=== PATIENT | male | born 1965 ===

== ENCOUNTER 2016-11-02 16:54 | Observation (INO) | payer OTHER ==
[2016-11-02] MEDS ORDERED: TDAP Vaccine 0.5 mL Syr IM ONE (17:09)
--- NOTE | 2016-11-02 17:57 | ED PDOC ---
Arrival/HPI - General Time Seen by Provider: 11/02/16 16:55 Historian: Patient - History of Present Illness Narrative History of Present Illness (Text): 11/02/16 17:57 A 51 year old male, whose past medical history includes hypertension and alcohol abuse, was brought into the emergency department by EMS for alcohol intoxication. History obtained through scribe who translated for patient. Patient is unable to recall any details prior to arrival but admits to etoh use. Patient denies any fever, chills, nausea, vomiting, diarrhea, abdominal pain, urinary symptoms, neck pain, back pain, chest pain, shortness of breath, headache, dizziness, suicidal ideation, homicidal ideation or any other complaints. Patient is a poor historian. PMD: Dr. Elisha Rojo Time/Duration: Prior to Arrival Symptom Course: Unchanged Quality: Other Context: Other Past Medical History - Provider Review Nursing Documentation Reviewed: Yes - Infectious Disease Hx of Infectious Diseases: None - Tetanus Immunization Tetanus Immunization: Unknown - Cardiac Hx Cardiac Disorders: Yes Hx Hypertension: Yes - Pulmonary Hx Respiratory Disorders: Yes Hx Sleep Apnea: Yes - Neurological Hx Neurological Disorder: No - HEENT Hx HEENT Disorder: No - Renal Hx Renal Disorder: Yes Hx Kidney Stones: Yes - Endocrine/Metabolic Hx Endocrine Disorders: No - Hematological/Oncological Hx Blood Disorders: No - Integumentary Hx Dermatological Disorder: No - Musculoskeletal/Rheumatological Hx Musculoskeletal Disorders: Yes Hx Falls: Yes - Gastrointestinal Hx Gastrointestinal Disorders: Yes Hx Gastritis: Yes - Genitourinary/Gynecological Hx Genitourinary Disorders: No Hx Sexually Transmitted Diseases: No - Psychiatric Hx Psychophysiologic Disorder: Yes Hx Anxiety: Yes Hx Depression: Yes Hx Substance Use: No - Past Surgical History Past Surgical History: Non-Contributing - Anesthesia Hx Anesthesia: Yes Hx Anesthesia Reactions: No Hx Malignant Hyperthermia: No - Suicidal Assessment Feels Threatened In Home Enviroment: No Family/Social History - Physician Review Nursing Documentation Reviewed: Yes Family/Social History: No Known Family HX Smoking Status: Never Smoked Hx Alcohol Use: Yes Amount per day: 15 Hx Substance Use: No Hx Substance Use Treatment: Yes Allergies/Home Meds Allergies/Adverse Reactions: Allergies No Known Allergies Allergy (Verified 10/17/16 20:10) Home Medications: Home Meds Medication Instructions Recorded Confirmed Losartan Potassium [Cozaar] 100 mg PO DAILY 02/13/17 04/16/17 Metoprolol Succinate [Toprol XL] 100 mg PO DAILY 08/16/16 10/17/16 Review of Systems - Review of Systems Systems not reviewed;Unavailable: Intoxicated Physical Exam Vital Signs Reviewed: Yes Vital Signs Temp Pulse Resp BP Pulse Ox 11/02/16 20:02 94 H 16 120/76 99 11/02/16 17:00 97.7 F 105 H 18 113/73 96 Temperature: Afebrile Blood Pressure: Normal Pulse: Tachycardic Respiratory Rate: Normal Appearance: Positive for: Comfortable, Other (Intoxicated male, who is somnolent ) Pain Distress: None Mental Status: No: Agitated - Systems Exam Head: Present: Atraumatic, Normocephalic Pupils: Present: PERRL Conjunctiva: Present: Normal Mouth: Present: Moist Mucous Membranes Pharnyx: Present: Normal. No: ERYTHEMA, EXUDATE Nose (Internal): Present: Other (Dry blood noted in right nare) Neck: Present: Normal Range of Motion Respiratory/Chest: Present: Clear to Auscultation, Good Air Exchange. No: Respiratory Distress, Accessory Muscle Use Cardiovascular: Present: Regular Rate and Rhythm, Normal S1, S2. No: Murmurs Abdomen: Present: Normal Bowel Sounds. No: Tenderness, Distention, Peritoneal Signs Upper Extremity: Present: Normal Inspection. No: Cyanosis, Edema Lower Extremity: Present: NORMAL PULSES, Normal ROM, Neurovascularly Intact, Other (Skin abrasions to bilateral knees, no swelling). No: Edema, CALF TENDERNESS, Swelling, Erythema, Deformity, Temperature Abnormalties Skin: Present: Warm, Dry, Normal Color. No: Rashes Psychiatric: Present: Intoxicated. No: Suicidal Ideation, Homicidal Ideation Medical Decision Making ED Course and Treatment: 11/02/16 17:56 Impression: A 51 year old male brought in for alcohol intoxication. Patient unable to recall details, denies any complaints at this time. Differential Diagnosis included but are not limited to: Alcohol intoxication Plan: -- Head CT -- Maxillofacial CT -- Bilateral knee with patella xray -- Boostrix vaccine -- Reassess and disposition Prior Visits: Notes and results from previous visits were reviewed. Patient last seen in the ED on 08/16/16 for alcohol intoxication. Progress Notes: Report Date : 11/02/2016 18:31:09 PROCEDURE: CT HEAD WITHOUT CONTRAST. Dictator : Nanci Hua MD IMPRESSION: Atrophy. Prominence of the size anterior convexity subarachnoid spaces, possibly bilateral hygromas. Mild nonspecific white matter changes. Small fluid in the right mastoid air cells. Correlate clinically for mastoiditis. Report Date : 11/02/2016 18:41:09 Procedure: CT maxillofacial Dictator : Nanci Hua MD Impression: No acute fracture identified. Partial opacification of the right mastoid air cells; correlate clinically for possibility of mastoiditis. 11/02/16 18:05 Bilateral knee xray read and interpreted by me, which shows no acute fracture. 11/02/16 22:30 Patient with etoh intoxication but no other complaints. Patient is still intoxicated and not steady for discharge; daughter came to the ED to check on the patient and says she will not take him home till he maldonado up because she says if he leaves him, he will just leave the house and go drink. So she said she will return upon sobriety. 11/02/16 22:32 Case will be endorsed to Dr. Mcgee, awaiting patient sobriety. - RAD Interpretation Radiology Orders: 11/02/16 17:08 Brain [HEAD W/O CONTRAST] [CT] Stat MAXILLOFACIAL W/O CONTRAST [CT] Stat KNEE W PATELLA BILAT 3 VIEW [RAD] Stat - Medication Orders Current Medication Orders: Discontinued Medications Tetanus/Reduced Diphtheria/Acell Pertussis (Boostrix Vaccine Inj) 0.5 ml IM .ONCE ONE Stop: 11/02/16 17:10 Last Admin: 11/02/16 17:51 Dose: 0.5 ml - Scribe Statement The provider has reviewed the documentation as recorded by the Scribe Salima Hernandez Provider Scribe Attestation: All medical record entries made by the Scribe were at my direction and personally dictated by me. I have reviewed the chart and agree that the record accurately reflects my personal performance of the history, physical exam, medical decision making, and the department course for this patient. I have also personally directed, reviewed, and agree with the discharge instructions and disposition. Disposition/Present on Arrival - Present on Arrival Any Indicators Present on Arrival: No History of DVT/PE: No History of Uncontrolled Diabetes: No Urinary Catheter: No History of Decub. Ulcer: No History Surgical Site Infection Following: None - Disposition Have Diagnosis and Disposition been Completed?: No Diagnosis: Alcohol intoxication Disposition Time: 23:00 Patient Problems: Current Active Problems Problem Status Onset Alcohol intoxication Acute Condition: STABLE Referrals: Elisha Rojo MD [Primary Care Provider] - Follow up with primary
--- NOTE | 2016-11-02 18:32 | CT ---
PROCEDURE: CT HEAD WITHOUT CONTRAST. HISTORY: etoh; fell and hit head COMPARISON: Noncontrast head CT performed 04/01/15 TECHNIQUE: Axial computed tomography images were obtained through the head/brain without intravenous contrast. Radiation dose: Total exam DLP = 822.62 mGy-cm. This CT exam was performed using one or more of the following dose reduction techniques: Automated exposure control, adjustment of the mA and/or kV according to patient size, and/or use of iterative reconstruction technique. FINDINGS: Examination limited by oblique positioning of patient's head in the gantry. HEMORRHAGE: No intracranial hemorrhage. BRAIN: Diffuse atrophy with prominence of the ventricles and sulci noted. No mass effect or edema. Prominence of the size anterior convexity subarachnoid spaces, possibly bilateral hygromas. Mild scattered white matter hypodensities, which are nonspecific, but often seen with chronic microvascular ischemic disease. Please note that MRI with diffusion imaging is more sensitive in the detection of acute ischemic event. VENTRICLES: No hydrocephalus. CALVARIUM: Unremarkable. PARANASAL SINUSES: Unremarkable as visualized. No significant inflammatory changes. MASTOID AIR CELLS: Small fluid in the right mastoid air cells. The left mastoid air cells appear clear. OTHER FINDINGS: None. IMPRESSION: Atrophy. Prominence of the size anterior convexity subarachnoid spaces, possibly bilateral hygromas. Mild nonspecific white matter changes. Small fluid in the right mastoid air cells. Correlate clinically for mastoiditis.
--- NOTE | 2016-11-02 18:43 | CT ---
CT maxillofacial bones without IV contrast Indication: etoh; fell and hit face Comparison: Noncontrast head CT performed the same day. Technique: Axial computed tomography images were obtained of the maxillofacial bones without the use of intravenous contrast. Coronal and sagittal reformatted images were generated and reviewed. This CT exam was performed using 1 or more of the falling dose reduction techniques: Automated exposure control, adjustment of the MAA and/or kV according to patient size, and/or use of iterative reconstruction technique. Radiation dose: Total exam DLP = 768.71 mGy-cm. Findings: The facial bones appear intact without acute fracture. Poor dentition. The orbits appear unremarkable. The temporomandibular joints are located. Partial opacification the right mastoid air cells. The left mastoid air cells appear clear. The paranasal sinuses appear clear without air-fluid levels. Impression: No acute fracture identified. Partial opacification of the right mastoid air cells; correlate clinically for possibility of mastoiditis.
[2016-11-03 07:39] LABS: ADD MANUAL DIFF? NO
--- NOTE | 2016-11-03 07:48 | ED PDOC ---
Physical Exam Vital Signs Reviewed: Yes Vital Signs Temp Pulse Resp BP Pulse Ox 11/03/16 12:32 101 H 16 134/98 H 99 11/03/16 09:04 99 H 16 135/82 99 11/03/16 07:40 94 H 16 134/82 99 11/03/16 07:20 98.2 F 98 H 20 138/82 98 11/03/16 07:11 94 H 16 96 11/03/16 05:50 94 H 16 132/78 97 11/03/16 03:00 92 H 16 126/78 94 L 11/02/16 23:09 84 16 114/80 97 11/02/16 20:02 94 H 16 120/76 99 11/02/16 17:00 97.7 F 105 H 18 113/73 96 Temperature: Afebrile Blood Pressure: Normal Pulse: Tachycardic Respiratory Rate: Normal Appearance: Positive for: Non-Toxic Pain Distress: None Mental Status: Positive for: Alert and Oriented X 3 Finger Stick Blood Glucose: 105 Medical Decision Making ED Course and Treatment: 11/03/16 07:44 Case endorsed to me by , pending sobriety and reevaluation. Patient is a 51 year old male who was brought to emergency department for alcohol intoxication. On reevaluation, patient is awake, alert, and oriented X3. Admits to drinking alcohol for past week. Denies any headache, or chest pain /discomfort. On PE, patient is tremulous and very shaky. Ordered labs and Librium. Patient will be admitted for alcohol withdrawal. Persistent shakiness despite librium. He admits to drinking alcohol for "past week". Denies chest pain or shortness of breath. No focal motor weakness or sensory deficits. - Lab Interpretations Lab Results: 11/03/16 07:30 11/03/16 08:45 Lab Results 11/03/16 08:50: Magnesium 1.5 L 11/03/16 08:45: Sodium 134, Potassium 3.7, Chloride 98, Carbon Dioxide 20 L, Anion Gap 20, BUN 15, Creatinine 1.4, Est GFR ( Amer) > 60, Est GFR (Non- Af Amer) 53, Random Glucose 94, Calcium 9.2, Total Bilirubin 1.1, AST 65 H, ALT 50, Alkaline Phosphatase 110, Total Protein 8.6 H, Albumin 4.4, Globulin 4.2, Albumin/Globulin Ratio 1.0 L 11/03/16 07:30: Alcohol, Quantitative 127 H 11/03/16 07:30: WBC 11.5 H, RBC 4.51, Hgb 14.8, Hct 40.1 L, MCV 88.9, MCH 32.8, MCHC 36.9, RDW 15.4 H, Plt Count 240, MPV 10.6, Gran % 75.4 H, Lymph % (Auto) 15.6 L, [place] % (Auto) 8.7 H, Eos % (Auto) 0.1 L, Baso % (Auto) 0.2, Gran # 8.63 H, Lymph # 1.8, [place] # 1.0 H, Eos # 0.0, Baso # 0.02 11/02/16 17:28: POC Glucose (mg/dL) 92 - RAD Interpretation Radiology Orders: 11/02/16 17:08 Brain [HEAD W/O CONTRAST] [CT] Stat MAXILLOFACIAL W/O CONTRAST [CT] Stat KNEE W PATELLA BILAT 3 VIEW [RAD] Stat - Medication Orders Current Medication Orders: Atorvastatin Calcium (Lipitor) 20 mg PO HS RICHARD Chlordiazepoxide (Librium) 25 mg PO Q8 RICHARD PRN Reason: Protocol Multivitamins/Vitamin C 10 ml/Thiamine HCl 100 mg/ Folic Acid 1 mg/ Sodium Chloride 1,011.2 mls @ 100 mls/hr IV .Q10H7M ONE Stop: 11/03/16 20:20 Last Admin: 11/03/16 11:00 Dose: 100 mls/hr Lorazepam (Ativan) 2 mg IVP Q2H PRN; Protocol PRN Reason: Anxiety Losartan Potassium (Cozaar) 100 mg PO DAILY RICHARD Metoprolol Succinate (Toprol Xl) 100 mg PO DAILY RICHARD Multivitamins (Thera Tab) 1 tab PO DAILY RICHARD Ondansetron HCl (Zofran Inj) 4 mg IVP Q4H PRN PRN Reason: Nausea/Vomiting Pantoprazole Sodium (Protonix Ec Tab) 40 mg PO 0630 RICHARD Sertraline HCl (Zoloft) 50 mg PO DAILY RICHARD Discontinued Medications Acetaminophen (Tylenol 325mg Tab) 650 mg PO ONCE STA Stop: 11/03/16 10:21 Last Admin: 11/03/16 11:00 Dose: 650 mg Chlordiazepoxide (Librium) 50 mg PO STAT STA PRN Reason: Protocol Stop: 11/03/16 07:36 Last Admin: 11/03/16 07:46 Dose: 50 mg Lorazepam (Ativan) 1 mg IVP ONCE ONE Stop: 11/03/16 10:15 Last Admin: 11/03/16 11:00 Dose: 1 mg Tetanus/Reduced Diphtheria/Acell Pertussis (Boostrix Vaccine Inj) 0.5 ml IM .ONCE ONE Stop: 11/02/16 17:10 Last Admin: 11/02/16 17:51 Dose: 0.5 ml Disposition/Present on Arrival - Present on Arrival Any Indicators Present on Arrival: No History of DVT/PE: No History of Uncontrolled Diabetes: No Urinary Catheter: No History of Decub. Ulcer: No History Surgical Site Infection Following: None - Disposition Have Diagnosis and Disposition been Completed?: Yes Diagnosis: Alcohol intoxication, Alcohol withdrawal syndrome Disposition: HOSPITALIZED Disposition Time: 10:30 Patient Plan: Admission Patient Problems: Current Active Problems Problem Status Onset Alcohol intoxication Acute Alcohol withdrawal syndrome Acute Condition: FAIR
[2016-11-03 07:49] LABS: BASO # 0.02 K/mm3 (0.0-2.0); BASO % 0.2 % (0.0-3.0); EOS % 0.1 % (1.5-5.0); GRAN # 8.63 (1.4-6.5); GRAN % 75.4 % (50.0-68.0); HEMATOCRIT 40.1 % (42.0-52.0); LYMPH # 1.8 (1.2-3.4); LYMPH % 15.6 % (22.0-35.0); MEAN CELL VOLUME 88.9 fL (80.0-105.0); MEAN CORPUSCULAR HEMOGLOBIN 32.8 pg (25.0-35.0); MEAN CORPUSCULAR HGB CONC 36.9 g/dl (31.0-37.0); MEAN PLATELET VOLUME 10.6 fl (7.0-11.0); MONO % 8.7 % (1.0-6.0); PLATELET COUNT 240 10^3/uL (120.0-450.0); RED CELL DISTRIBUTION WIDTH 15.4 % (11.5-14.5); WHITE BLOOD COUNT 11.5 10^3/ul (4.5-11.0)
--- NOTE | 2016-11-03 08:06 | RAD ---
PROCEDURE: Bilateral Knee Radiographs. HISTORY: fell and hit knees b/L COMPARISON: None. 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 No fracture suspect JOINTS: Bilateral medial femoral tibial joint space narrowing. On these exams mild bilateral varus orientation is suggested. SOFT TISSUES: Right Knee: Normal. Left Knee: Normal. JOINT EFFUSION: Right Knee: None. Left Knee: None. OTHER FINDINGS: None. IMPRESSION: No fracture. Bilateral bipartite patella -developmental variant s
[2016-11-03 09:04] LABS: ALKALINE PHOSPHATASE 110 U/L (38-133); ALT/SGPT 50 U/L (7-56); AST/SGOT 65 U/L (15-59); BILIRUBIN,TOTAL 1.1 mg/dL (0.2-1.3); BLOOD UREA NITROGEN 15 mg/dL (7-21); CALCIUM 9.2 mg/dL (8.4-10.5); CARBON DIOXIDE 20 mmol/L (21-33); CHLORIDE 98 mmol/L (95-110); GFR AFRICAN-AMERICAN > 60; GLUCOSE,RANDOM 94 mg/dL (70-110); POTASSIUM 3.7 mmol/L (3.6-5.0); SODIUM 134 mmol/L (132-148); TOTAL PROTEIN 8.6 g/dL (5.8-8.3)
[2016-11-03] MEDS ORDERED: Multivitamin (MVI) 10 ML, Thiamine 100 MG, Folic Acid 1 MG in Sodium Chloride 0.9% 1,00... IV ONE (10:14)
--- NOTE | 2016-11-03 13:14 | CP.PCM.HP ---
<WenceslaoWm - Last Filed: 11/03/16 13:37> History of Present Illness - History of Present Illness History of Present Illness: 51 M with pmh of depression, anxiety, HTN and ETOH abuse presents with passing out following drinking alcohol. Pt states that he was home have a few bottles of beer and whiskey when he passed out. He states that he normally drinks 6-8 packs of beer and some whisky daily. He first began drinking alcohol aprox 10 years ago. Than his son at a young age a few years ago and he started drinking more and more frequently. He also c/o b/l knee abrasion following his fall. He is unsure how he got hurt. No other complaints. Denies any Ross, dizziness, visual changes, f/c, sob, cp, abd pain, n/v/d, urinary changes, bm changes. PMH: depression, anxiety, HTN and ETOH abuse PSH: biopsy of gluteal mass Med: refer to [facility] All: NKA SH: ETOH abuse as above, denies smoking and drug abuse FH: denies Present on Admission - Present on Admission Any Indicators Present on Admission: No Review of Systems - Review of Systems All systems: reviewed and no additional remarkable complaints except (HPI) Past Patient History - Infectious Disease Hx of Infectious Diseases: None - Tetanus Immunizations Tetanus Immunization: Unknown - Past Medical History & Family History Past Medical History?: Yes - Past Social History Smoking Status: Never Smoked Alcohol: > 2 Drinks/Day Drugs: Denies - CARDIAC Hx Cardiac Disorders: Yes Hx Hypertension: Yes - PULMONARY Hx Respiratory Disorders: Yes Hx Sleep Apnea: Yes - NEUROLOGICAL Hx Neurological Disorder: No - HEENT Hx HEENT Problems: No - RENAL Hx Chronic Kidney Disease: Yes Hx Kidney Stones: Yes - ENDOCRINE/METABOLIC Hx Endocrine Disorders: No - HEMATOLOGICAL/ONCOLOGICAL Hx Blood Disorders: No - INTEGUMENTARY Hx Dermatological Problems: No - MUSCULOSKELETAL/RHEUMATOLOGICAL Hx Musculoskeletal Disorders: Yes Hx Falls: Yes - GASTROINTESTINAL Hx Gastrointestinal Disorders: Yes Hx Gastritis: Yes - GENITOURINARY/GYNECOLOGICAL Hx Genitourinary Disorders: No Hx Sexually Transmitted Disorders: No - PSYCHIATRIC Hx Psychophysiologic Disorder: Yes Hx Anxiety: Yes Hx Depression: Yes Hx Substance Use: No - ANESTHESIA Hx Anesthesia: Yes Hx Anesthesia Reactions: No Hx Malignant Hyperthermia: No Meds Allergies/Adverse Reactions: Allergies Allergy/AdvReac Type Severity Reaction Status Date / Time No Known Allergies Allergy Verified 10/17/16 20:10 Physical Exam - Constitutional Appears: No Acute Distress - Head Exam Head Exam: ATRAUMATIC, NORMAL INSPECTION, NORMOCEPHALIC - Eye Exam Eye Exam: EOMI, Normal appearance, PERRL - ENT Exam ENT Exam: Mucous Membranes Moist, Normal Exam - Neck Exam Neck exam: Positive for: Normal Inspection - Respiratory Exam Respiratory Exam: Clear to Auscultation Bilateral, NORMAL BREATHING PATTERN. absent: Rales, Wheezes - Cardiovascular Exam Cardiovascular Exam: REGULAR RHYTHM, RRR, +S1, +S2 - GI/Abdominal Exam GI & Abdominal Exam: Soft. absent: Distended, Tenderness - Extremities Exam Extremities exam: Negative for: calf tenderness Additional comments: b/l knee abrasion dressing in place - Neurological Exam Neurological exam: Alert, Oriented x3 Additional comments: some and anxiety and tremors - Psychiatric Exam Psychiatric exam: Anxious, Normal Affect, Normal Mood - Skin Skin Exam: Dry, Intact, Normal Color, Warm Results - Vital Signs Recent Vital Signs: Last Vital Signs Temp 98.2 F 11/03/16 07:20 Pulse 101 H 11/03/16 12:32 Resp 16 11/03/16 12:32 BP 134/98 H 11/03/16 12:32 Pulse Ox 99 11/03/16 12:32 - Labs Result Diagrams: 11/03/16 07:30 11/03/16 08:45 Assessment & Plan - Assessment and Plan (Free Text) Assessment: 51 M with pmh of depression, anxiety, HTN and ETOH abuse presents with passing out following drinking alcohol. 1. ETOH withdrwal: - Currently anxious with tremors - Alcohol level 127 - [facility] protocol - Aspiration, fall, and seizure precautions - Ativan 2mg Q2H PRN, and Librium 25mg Q8H - Banana bag - Daily labs with Mg and P - Zofran PRN - CXR - no active disease - Knee Xrays - negative - Head CT - atrophy, possible bilateral hygromas, small fluid in R mastoid air cells, possible mastoiditis - CT maxillofacial - partial opacification of R mastoid air cells, possible mastoiditis correlate clinically 2. HTN: - Cont home Losartan and Metoprolol 3. HLD: - Cont home Lipitor 4. Depresion: - Consulted psych for recs - Cont home Zoloft 5. GI/DVT ppx - Protonix, HSQ and SCDs Case and plan was seen, reviewed, and discussed in detail with Dr Kenney. <Andre Kenney - Last Filed: 11/03/16 16:21> Results - Vital Signs Recent Vital Signs: Last Vital Signs Temp 98.9 F 11/03/16 15:08 Pulse 110 H 11/03/16 15:08 Resp 18 11/03/16 15:08 BP 116/76 11/03/16 15:08 Pulse Ox 98 11/03/16 15:08 - Labs Result Diagrams: 11/03/16 07:30 11/03/16 08:45 Attending/Attestation - Attestation I have personally seen and examined this patient.: Yes I have fully participated in the care of the patient.: Yes I have reviewed all pertinent clinical information: Yes Notes (Text): 11/03/16 16:16 Attending note; Patient seen and examined with resident in ER bed 8. Patient is a 51-year-old male admitted after passing out. Patient was binge drinking and blacked out. Patient with a history of chronic alcohol abuse. The patient recently lost his son and started drinking again. Admit for alcohol withdrawal symptoms. Continue banana bag. IV Ativan ordered. Started on by mouth Librium. Complete alcohol cessation is strongly advised. Fall; CT head and CT facial maxillary is negative for any fracture. Depression; psychiatric evaluation requested. Hypertension; continue metoprolol and Cozaar. Upon discharge the patient will follow-up with PMD Dr. Rojo.
--- NOTE | 2016-11-03 13:18 | RAD ---
HISTORY: admission COMPARISON: 04/02/2015 FINDINGS: LUNGS: No active pulmonary disease. PLEURA: No significant pleural effusion identified, no pneumothorax apparent. CARDIOVASCULAR: Unremarkable OSSEOUS STRUCTURES: No significant abnormalities. VISUALIZED UPPER ABDOMEN: Normal. OTHER FINDINGS: None. IMPRESSION: No active disease.
[2016-11-03] MEDS: Metoprolol Succinate 100 mg XL Tab PO SCH (14:44)
[2016-11-03] MEDS: Multivitamin Therapeutic Tab PO SCH (14:44)
[2016-11-03 18:07] VITALS: BMI 34.4
--- NOTE | 2016-11-03 18:41 | CARD ---
APPROVED REPORT EKG Measurement Heart [id number] [place] [id number] <Conclusion> Sinus tachycardia Otherwise normal ECG
[2016-11-04] MEDS ORDERED: Pantoprazole 40 mg EC Tab PO SCH (06:30)
[2016-11-04 06:58] VITALS: O2SAT 98
[2016-11-04 07:59] LABS: ADD MANUAL DIFF? NO
[2016-11-04 08:06] LABS: BASO # 0.01 K/mm3 (0.0-2.0); BASO % 0.1 % (0.0-3.0); EOS % 0.3 % (1.5-5.0); GRAN # 6.51 (1.4-6.5); GRAN % 67.6 % (50.0-68.0); LYMPH # 2.3 (1.2-3.4); LYMPH % 23.8 % (22.0-35.0); MEAN CELL VOLUME 90.2 fL (80.0-105.0); MEAN CORPUSCULAR HEMOGLOBIN 32.2 pg (25.0-35.0); MEAN CORPUSCULAR HGB CONC 35.7 g/dl (31.0-37.0); MONO # 0.8 (0.1-0.6); MONO % 8.2 % (1.0-6.0); PLATELET COUNT 177 10^3/uL (120.0-450.0); RED CELL DISTRIBUTION WIDTH 15.2 % (11.5-14.5); WHITE BLOOD COUNT 9.6 10^3/ul (4.5-11.0)
[2016-11-04 08:18] LABS: ALB/GLOB RATIO 1.1 (1.1-1.8); ALKALINE PHOSPHATASE 96 U/L (38-133); ALT/SGPT 45 U/L (7-56); AST/SGOT 43 U/L (15-59); BILIRUBIN,TOTAL 1.6 mg/dL (0.2-1.3); BLOOD UREA NITROGEN 17 mg/dL (7-21); CALCIUM 9.2 mg/dL (8.4-10.5); CARBON DIOXIDE 25 mmol/L (21-33); CHLORIDE 99 mmol/L (98-107); GFR AFRICAN-AMERICAN > 60; GLUCOSE,RANDOM 92 mg/dL (70-110); MAGNESIUM 1.4 mg/dL (1.7-2.2); POTASSIUM 3.2 mmol/L (3.6-5.0); SODIUM 133 mmol/L (132-148); TOTAL PROTEIN 7.7 g/dL (5.8-8.3)
[2016-11-04] MEDS ORDERED: Magnesium Sulfate 2 GM in Sodium Chloride 0.9% 100 ML IVPB ONE (09:02)
[2016-11-04] MEDS ORDERED: Potassium Chloride 40 mEq/30 ml LIQ UD PO STA (09:02)
[2016-11-04] MEDS: Metoprolol Succinate 100 mg XL Tab PO SCH (09:49)
[2016-11-04] MEDS: Multivitamin Therapeutic Tab PO SCH (09:49)
[2016-11-04 12:01] VITALS: TEMP 97.1
--- NOTE | 2016-11-04 17:52 | CP.PCM.DIS ---
<Wm Billy - Last Filed: 11/04/16 17:50> Provider - Provider Date of Admission: 11/03/16 10:41 Attending physician: Andre Kenney MD Primary care physician: Elisha Rojo MD Consults: Psychiatry Time Spent in preparation of Discharge (in minutes): 45 Hospital Course - Lab Results Lab Results: Most Recent Lab Values WBC 9.6 10^3/ul (4.5-11.0) 11/04/16 07:20 RBC 4.10 10^6/uL (3.5-6.1) 11/04/16 07:20 Hgb 13.2 gm/dL (14.0-18.0) L 11/04/16 07:20 Hct 37.0 % (42.0-52.0) L 11/04/16 07:20 MCV 90.2 fL (80.0-105.0) 11/04/16 07:20 MCH 32.2 pg (25.0-35.0) 11/04/16 07:20 MCHC 35.7 g/dl (31.0-37.0) 11/04/16 07:20 RDW 15.2 % (11.5-14.5) H 11/04/16 07:20 Plt Count 177 10^3/uL (120.0-450.0) 11/04/16 07:20 MPV 11.0 fl (7.0-11.0) 11/04/16 07:20 Gran % 67.6 % (50.0-68.0) 11/04/16 07:20 Lymph % (Auto) 23.8 % (22.0-35.0) 11/04/16 07:20 [place] % (Auto) 8.2 % (1.0-6.0) H 11/04/16 07:20 Eos % (Auto) 0.3 % (1.5-5.0) L 11/04/16 07:20 Baso % (Auto) 0.1 % (0.0-3.0) 11/04/16 07:20 Gran # 6.51 (1.4-6.5) H 11/04/16 07:20 Lymph # 2.3 (1.2-3.4) 11/04/16 07:20 [place] # 0.8 (0.1-0.6) H 11/04/16 07:20 Eos # 0.0 (0.0-0.7) 11/04/16 07:20 Baso # 0.01 K/mm3 (0.0-2.0) 11/04/16 07:20 Sodium 133 mmol/L (132-148) 11/04/16 07:20 Potassium 3.2 mmol/L (3.6-5.0) L 11/04/16 07:20 Chloride 99 mmol/L (98-107) 11/04/16 07:20 Carbon Dioxide 25 mmol/L (21-33) 11/04/16 07:20 Anion Gap 12 (10-20) 11/04/16 07:20 BUN 17 mg/dL (7-21) 11/04/16 07:20 Creatinine 1.1 mg/dL (0.5-1.4) 11/04/16 07:20 Est GFR ( Amer) > 60 11/04/16 07:20 Est GFR (Non-Af Amer) > 60 11/04/16 07:20 POC Glucose (mg/dL) 92 mg/dL (65-110) 11/02/16 17:28 Random Glucose 92 mg/dL (70-110) 11/04/16 07:20 Calcium 9.2 mg/dL (8.4-10.5) 11/04/16 07:20 Phosphorus 3.0 mg/dL (2.5-4.5) 11/04/16 07:20 Magnesium 1.4 mg/dL (1.7-2.2) L 11/04/16 07:20 Total Bilirubin 1.6 mg/dL (0.2-1.3) H 11/04/16 07:20 AST 43 U/L (15-59) 11/04/16 07:20 ALT 45 U/L (7-56) 11/04/16 07:20 Alkaline Phosphatase 96 U/L (38-133) 11/04/16 07:20 Total Protein 7.7 g/dL (5.8-8.3) 11/04/16 07:20 Albumin 4.0 g/dL (3.0-4.8) 11/04/16 07:20 Globulin 3.7 gm/dL 11/04/16 07:20 Albumin/Globulin Ratio 1.1 (1.1-1.8) 11/04/16 07:20 Alcohol, Quantitative 127 mg/dL (0-10) H 11/03/16 07:30 - Hospital Course Hospital Course: 51 M with pmh of depression, anxiety, HTN and ETOH abuse presents with passing out following drinking alcohol. Pt states that he was home have a few bottles of beer and whiskey when he passed out. In the ED the basic lab work was done. Patient started withdrawing from alcohol. CXR was negative. Xrays of the knee was done due to fall on his knee and were negative for any fractures. He was admitted for ETOH withdrawal. Head CT showed atrophy, possible bilateral hygromas, small fluid in R mastoid air cells, possible mastoiditis. CT maxillofacial showed partial opacification of R mastoid air cells, possible mastoiditis correlate clinically. Pt was admitted for ETOH withdrawal. CIWA protocol was done. Aspiration, fall and seizure precautions. Psychiatry team was consulted for history of depression. Pt was placed on Ativan 2mg Q8H PRN and Librium 25mg Q8H and watched closely for withdrwal symptoms. Today pt was seen and examined at bedside. He is doing well. No complaints at this time. He denies any headaches, dizziness, f/c, sob, cp, palpitations, abd pain, nv/d, urinary or bm changes. Discharge Exam - Head Exam Head Exam: ATRAUMATIC, NORMAL INSPECTION, NORMOCEPHALIC - Eye Exam Eye Exam: EOMI, Normal appearance, PERRL - ENT Exam ENT Exam: Mucous Membranes Moist - Respiratory Exam Respiratory Exam: Clear to PA & Lateral. absent: Rales, Wheezes - Cardiovascular Exam Cardiovascular Exam: REGULAR RHYTHM, RRR, +S1, +S2 - GI/Abdominal Exam GI & Abdominal Exam: Soft. absent: Distended, Tenderness - Extremities Exam Extremities exam: normal inspection - Neurological Exam Neurological exam: Alert, CN II-XII Intact, Oriented x3 - Psychiatric Exam Psychiatric exam: Normal Affect, Normal Mood - Skin Skin Exam: Dry, Intact, Normal Color, Warm Discharge Plan - Discharge Medications Prescriptions: Atorvastatin [Lipitor] 20 mg PO HS #30 tab chlordiazePOXIDE [Chlordiazepoxide HCl] 5 mg PO TID #6 cap Escitalopram [Lexapro] 10 mg PO DAILY #30 tab Folic Acid 1 mg PO DAILY #30 tab Losartan [Cozaar] 100 mg PO DAILY #30 tab Metoprolol Succinate [Toprol XL] 100 mg PO DAILY #30 tab Pantoprazole [Protonix EC Tab] 40 mg PO 0630 #14 ect - Follow Up Plan Condition: FAIR Disposition: HOME/ ROUTINE Instructions: Alcohol Intoxication (DC), Alcohol Withdrawal (DC) Additional Instructions: Please follow up with you primary care physician within 1 week. If any of your symptoms occur come back to the closest ED. Take your medications as prescribed. Stop alcohol abuse. Follow up with Psychiatrist as needed. Referrals: Eileen Jay MD [Staff Provider] - Elisha Rojo MD [Primary Care Provider] - <Andre Kenney - Last Filed: 11/05/16 14:09> Provider - Provider Date of Admission: 11/03/16 10:41 Attending physician: Andre Kenney MD Primary care physician: Elisha Rojo MD Hospital Course - Lab Results Lab Results: Micro Results 11/03/16 12:28 Nose MRSA Culture (Admit) - Final MRSA NOT DETECTED Most Recent Lab Values WBC 9.6 10^3/ul (4.5-11.0) 11/04/16 07:20 RBC 4.10 10^6/uL (3.5-6.1) 11/04/16 07:20 Hgb 13.2 gm/dL (14.0-18.0) L 11/04/16 07:20 Hct 37.0 % (42.0-52.0) L 11/04/16 07:20 MCV 90.2 fL (80.0-105.0) 11/04/16 07:20 MCH 32.2 pg (25.0-35.0) 11/04/16 07:20 MCHC 35.7 g/dl (31.0-37.0) 11/04/16 07:20 RDW 15.2 % (11.5-14.5) H 11/04/16 07:20 Plt Count 177 10^3/uL (120.0-450.0) 11/04/16 07:20 MPV 11.0 fl (7.0-11.0) 11/04/16 07:20 Gran % 67.6 % (50.0-68.0) 11/04/16 07:20 Lymph % (Auto) 23.8 % (22.0-35.0) 11/04/16 07:20 [place] % (Auto) 8.2 % (1.0-6.0) H 11/04/16 07:20 Eos % (Auto) 0.3 % (1.5-5.0) L 11/04/16 07:20 Baso % (Auto) 0.1 % (0.0-3.0) 11/04/16 07:20 Gran # 6.51 (1.4-6.5) H 11/04/16 07:20 Lymph # 2.3 (1.2-3.4) 11/04/16 07:20 [place] # 0.8 (0.1-0.6) H 11/04/16 07:20 Eos # 0.0 (0.0-0.7) 11/04/16 07:20 Baso # 0.01 K/mm3 (0.0-2.0) 11/04/16 07:20 Sodium 133 mmol/L (132-148) 11/04/16 07:20 Potassium 3.2 mmol/L (3.6-5.0) L 11/04/16 07:20 Chloride 99 mmol/L (98-107) 11/04/16 07:20 Carbon Dioxide 25 mmol/L (21-33) 11/04/16 07:20 Anion Gap 12 (10-20) 11/04/16 07:20 BUN 17 mg/dL (7-21) 11/04/16 07:20 Creatinine 1.1 mg/dL (0.5-1.4) 11/04/16 07:20 Est GFR ( Amer) > 60 11/04/16 07:20 Est GFR (Non-Af Amer) > 60 11/04/16 07:20 POC Glucose (mg/dL) 92 mg/dL (65-110) 11/02/16 17:28 Random Glucose 92 mg/dL (70-110) 11/04/16 07:20 Calcium 9.2 mg/dL (8.4-10.5) 11/04/16 07:20 Phosphorus 3.0 mg/dL (2.5-4.5) 11/04/16 07:20 Magnesium 1.4 mg/dL (1.7-2.2) L 11/04/16 07:20 Total Bilirubin 1.6 mg/dL (0.2-1.3) H 11/04/16 07:20 AST 43 U/L (15-59) 11/04/16 07:20 ALT 45 U/L (7-56) 11/04/16 07:20 Alkaline Phosphatase 96 U/L (38-133) 11/04/16 07:20 Total Protein 7.7 g/dL (5.8-8.3) 11/04/16 07:20 Albumin 4.0 g/dL (3.0-4.8) 11/04/16 07:20 Globulin 3.7 gm/dL 11/04/16 07:20 Albumin/Globulin Ratio 1.1 (1.1-1.8) 11/04/16 07:20 Alcohol, Quantitative 127 mg/dL (0-10) H 11/03/16 07:30 Attending/Attestation - Attestation I have personally seen and examined this patient.: Yes I have fully participated in the care of the patient.: Yes I have reviewed all pertinent clinical information, including history, physical exam and plan: Yes Notes (Text): 11/05/16 14:07 Attending note; Patient seen and examined with resident in ER bed 8. Patient is a 51-year-old male admitted after passing out. Patient was binge drinking and blacked out. Patient with a history of chronic alcohol abuse. The patient recently lost his son and started drinking again. Admit for alcohol withdrawal symptoms. Continue banana bag. IV Ativan ordered. Started on by mouth Librium. Complete alcohol cessation is strongly advised. Fall; CT head and CT facial maxillary is negative for any fracture. Depression; psychiatric evaluation requested. patient denied depression or suicidal ideation. did not wait for psych evaluation. Hypertension; continue metoprolol and Cozaar. PT eval appreciated. Upon discharge the patient will follow-up with PMD Dr. Rojo. diagnosis; alcohol abuse fall HTN depression
[2016-11-04 18:04] VITALS: BP 138/95; PULSE 64; RESP 21
--- NOTE | 2016-11-05 08:18 | CP.PCM.PCO ---
Physician Communication Note - Physician Communication Note Physician Communication Note: pt was d/c before this keno writer/runner evaluation
== END 2016-11-04 18:13 | disposition home or self-care (01) ==
LOC: ED 16:54 → ERH 11-03 10:41 → INTOOBSV 11-03 10:41 → ERH 11-03 16:59 → 2RSO 11-03 17:22
PROVIDERS: ADMIT Internal Medicine; ATTEND Internal Medicine
PROC: 3E0234Z Introduction of Serum, Toxoid and Vaccine into Muscle, Percutaneous Approach (ICD-10-PCS; principal; 2016-11-02)
DX: F10.239 Alcohol dependence with withdrawal, unspecified (principal); N18.9 Chronic kidney disease, unspecified; H70.91 Unspecified mastoiditis, right ear; I12.9 Hypertensive chronic kidney disease with stage 1 through stage 4 chronic kidney disease, or unspecified chronic kidney disease; W19.XXXA Unspecified fall, initial encounter; F32.89 Other specified depressive episodes; E78.5 Hyperlipidemia, unspecified; F10.229 Alcohol dependence with intoxication, unspecified; Y90.6 Blood alcohol level of 120-199 mg/100 ml; G47.30 Sleep apnea, unspecified; S80.212A Abrasion, left knee, initial encounter; S80.211A Abrasion, right knee, initial encounter; Z79.899 Other long term (current) drug therapy; Z87.442 Personal history of urinary calculi; K29.70 Gastritis, unspecified, without bleeding; R00.0 Tachycardia, unspecified; D18.1 Lymphangioma, any site; Z23 Encounter for immunization
CPT/HCPCS: 36415; 70450; 70486; 71010; 73562; 80053; 80320; 82948; 83735; 84100; 85025; 87081; 90471; 90715; 93005; 96372; 96374; 96375; 96376; 97116; 97162; 99285; G0378; G8978; G8979; G8980; J1644; J2060; J3411; J3475; J3480; J7040

== ENCOUNTER 2017-05-30 13:14 | Emergency (ER) | payer MEDICAID, OTHER ==
[2017-05-30 13:34] VITALS: TEMP 98; BMI 28.8
--- NOTE | 2017-05-30 13:43 | ED PDOC ---
Arrival/HPI - General Time Seen by Provider: 05/30/17 13:15 Historian: Patient, EMS - History of Present Illness Narrative History of Present Illness (Text): 05/30/17 13:30 Rai Estes is a 51 year old male, who is brought in via EMS after being found sleeping on the street. Patient admits to ETOH intake and is unable to provide further history. Patient denies any pain and there are no signs of trauma. Time/Duration: Prior to Arrival Symptom Onset: Sudden Symptom Course: Unchanged Context: Street Past Medical History - Provider Review Nursing Documentation Reviewed: Yes - Infectious Disease Hx of Infectious Diseases: None - Tetanus Immunization Tetanus Immunization: Unknown - Cardiac Hx Cardiac Disorders: Yes Hx Congestive Heart Failure: No Hx Hypertension: Yes - Pulmonary Hx Chronic Obstructive Pulmonary Disease (COPD): No - Neurological HX Cerebrovascular Accident: No - HEENT Hx HEENT Disorder: No Hx Blind: No Hx Cataracts: No Hx Deafness: No Hx Difficulty Chewing: No Hx Epistaxis: No Hx Glaucoma: No Hx Macular Degeneration: No - Renal Hx Renal Failure: No - Endocrine/Metabolic Hx Diabetes Mellitus Type 1: No Hx Diabetes Mellitus Type 2: No Hx Hypothyroidism: No - Hematological/Oncological Hx Blood Disorders: No Hx AIDS: No Hx Anemia: No Hx Cancer: No Hx Chemotherapy: No Hx Cirrhosis: No Hx Hemophilia: No Hx Hepatitis A: No Hx Hepatitis B: No Hx Hepatitis C: No Hx Metastasis: No Hx Shingles: No Hx Sickle Cell Disease: No Hx Unexplained Bleeding: No - Integumentary Hx Dermatological Disorder: No Hx Basal Cell Carcinoma: No Hx Eczema: No Hx Melanoma: No Hx Psoriasis: No Hx Squamous Cell Carcinoma: No - Musculoskeletal/Rheumatological Hx Arthritis: No - Gastrointestinal Hx Gastrointestinal Disorders: Yes Hx Colostomy: No Hx Crohn's Disease: No Hx Diverticulitis: No Hx Gall Bladder Disease: No Hx Gastroesophageal Reflux: No Hx Gastrointestinal Ulcer: No Hx Ileostomy: No Hx Liver Failure: No Hx Pancreatitis: No HX Swallowing Problems: No Other/Comment: Gastritis - Genitourinary/Gynecological Hx Genitourinary Disorders: No Hx Hematuria: No Hx Incontinence: No Hx Prostate Problems: No Hx Sexually Transmitted Diseases: No Hx Urinary Tract Infection: No - Psychiatric Hx Psychophysiologic Disorder: Yes Hx Anxiety: Yes Hx Bipolar Disorder: No Hx Depression: Yes Hx Emotional Abuse: No Hx Hallucinations: No Hx Panic Disorder: No Hx Paranoia: No Hx Post Traumatic Stress Disorder: No Hx Psychosis: No Hx Physical Abuse: No Hx Schizophrenia: No Hx Sexual Abuse: No Hx Substance Use: No - Past Surgical History Past Surgical History: Non-Contributing - Surgical History Hx Amputation: No Hx Appendectomy: No Hx Cardiac Catheterization: No Hx Cholecystectomy: No Hx Coronary Stent: No Hx Gastric Bypass Surgery: No Hx Hysterectomy: No Hx Inguinal Hernia Repair: No Hx Joint Replacement: No Hx Kidney Transplant: No Hx Liver Transplant: No Hx Mastectomy: No Hx Musculoskeletal Surgery: No Hx Open Heart Surgery: No Hx Orthopedic Surgery: No Hx Splenectomy: No Hx Valve Replacement: No - Anesthesia Hx Anesthesia: Yes Hx Anesthesia Reactions: No Hx Malignant Hyperthermia: No - Suicidal Assessment Feels Threatened In Home Enviroment: No Family/Social History - Physician Review Nursing Documentation Reviewed: Yes Family/Social History: Unknown Family HX Smoking Status: Never Smoked Hx Alcohol Use: Yes Amount per day: 15 Hx Substance Use: No Hx Substance Use Treatment: Yes Allergies/Home Meds Allergies/Adverse Reactions: Allergies No Known Allergies Allergy (Verified 10/17/16 20:10) Review of Systems - Review of Systems Systems not reviewed;Unavailable: Intoxicated Respiratory: absent: SOB Cardiovascular: absent: Chest Pain Physical Exam - Physical Exam Physical Exam Limitations: Intoxication Vital Signs Reviewed: Yes Vital Signs Temp Pulse Resp BP Pulse Ox 05/30/17 17:21 67 18 142/98 H 95 05/30/17 13:33 98 F 84 19 134/88 97 Temperature: Afebrile Blood Pressure: Normal Pulse: Regular Respiratory Rate: Normal Appearance: Positive for: Well-Appearing, Comfortable Pain Distress: None - Systems Exam Head: Present: Atraumatic, Normocephalic Pupils: Present: PERRL Extroacular Muscles: Present: EOMI Conjunctiva: Present: Normal Neck: Present: Normal Range of Motion Respiratory/Chest: Present: Clear to Auscultation, Good Air Exchange. No: Respiratory Distress, Accessory Muscle Use, Wheezes, Rales, Rhonchi Cardiovascular: Present: Regular Rate and Rhythm, Normal S1, S2. No: Murmurs Abdomen: Present: Normal Bowel Sounds. No: Tenderness, Distention, Peritoneal Signs, Rebound, Guarding Upper Extremity: Present: Normal Inspection, Normal ROM, NORMAL PULSES. No: Cyanosis, Edema, Tenderness, Swelling, Erythema Lower Extremity: Present: Normal Inspection, NORMAL PULSES, Normal ROM. No: Edema, Cyanosis, Tenderness, Swelling, Deformity Neurological: Present: GCS=15, CN II-XII Intact Skin: Present: Warm, Dry, Normal Color. No: Rashes Psychiatric: Present: Alert, Intoxicated Medical Decision Making ED Course and Treatment: 05/30/17 Impression: 51 year old male intoxicated Plan: -- CT head -- Labs -- Reassess and disposition Progress Notes: 05/30/17 13:54 FS:86 05/30/17 14:05 EKG shows NSR at 74bpm with LVH. Isolated t wave inversion in III. 05/30/2017 14:[address] FINDINGS: HEMORRHAGE: No intracranial hemorrhage. 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 On the left side the maximum thickness is 15 mm and on the right side 10 mm. There is compression of the brain parenchyma with effacement of sulci and narrowing of the lateral ventricles. VENTRICLES: Compressed CALVARIUM: Unremarkable. PARANASAL SINUSES: Unremarkable as visualized. No significant inflammatory changes. MASTOID AIR CELLS: Unremarkable as visualized. No inflammatory changes. OTHER FINDINGS: Findings were discussed with Dr. Espitia at 3:10 p.m. IMPRESSION: Chronic bilateral subdural fluid collections are seen which have increased in size. On the left side the maximum thickness is 15 mm and on the right side 10 mm. There is compression of the brain parenchyma with effacement of sulci and narrowing of the lateral ventricles Dictator: Leander Qureshi MD 05/30/2017 14:[address] FINDINGS: VERTEBRAE: No fracture. Normal alignment. No destructive bony lesion. DISCS/SPINAL CANAL/NEURAL FORAMINA: No significant central canal or neural foraminal stenosis. Disc degeneration at C5-6 PARASPINAL SOFT TISSUES: Unremarkable. OTHER FINDINGS: None. IMPRESSION: Unremarkable CT of the cervical spine. Dictator: Leander Qureshi MD 05/30/17 17:[address] Chao about worsening chronic subdural fluid collections. Patient is now AAOx3 and wants to go home. He has no complaints. He is neurologically intact. Dr. Chao recommends conversative management due to normal neuro status. Used vulcanizer operator to make patient aware of critical need to stop drinking to avoid additional falls that could lead to coma and due to worsening of subdural hematomas. Patient reports understanding. He was instructed to return immediately with any headache, change in mental status, or additional head trauma. Patient reports understanding and is in agreement. He ambulated out of Emergency department without issue. 05/30/17 17:55 - Lab Interpretations Lab Results: 05/30/17 15:17 05/30/17 15:17 Lab Results 05/30/17 16:56: Blood Type Pending, Antibody Screen Pending, BBK History Checked No verified bt 05/30/17 16:56: PT 12.4, INR 1.13 H, APTT 32.5 05/30/17 16:56: Alcohol, Quantitative 348 H* 05/30/17 16:56: Salicylates < 1 L, Acetaminophen < 10.0 L 05/30/17 15:17: Sodium 147, Potassium 3.5 L, Chloride 110 H, Carbon Dioxide 25, Anion Gap 16, BUN 10, Creatinine 0.9, Est GFR ( Amer) > 60, Est GFR (Non- Af Amer) > 60, Random Glucose 92, Calcium 9.0, Total Bilirubin 0.7, AST 40, ALT 38, Alkaline Phosphatase 90, Total Protein 8.2, Albumin 4.3, Globulin 3.8, Albumin/Globulin Ratio 1.1 05/30/17 15:17: WBC 8.9, RBC 4.49, Hgb 14.8, Hct 42.2, MCV 94.0, MCH 33.0, MCHC 35.1, RDW 12.9, Plt Count 262, MPV 10.1, Gran % 51.6, Lymph % (Auto) 42.4 H, [place] % (Auto) 4.9, Eos % (Auto) 0.7 L, Baso % (Auto) 0.4, Gran # 4.60, Lymph # 3.8 H, [place] # 0.4, Eos # 0.1, Baso # 0.04 05/30/17 13:48: POC Glucose (mg/dL) 86 - RAD Interpretation Radiology Orders: 05/30/17 13:36 HEAD W/O CONTRAST [CT] Stat 05/30/17 13:39 CERVICAL SPINE W/O CONTRAST [CT] Stat - Scribe Statement The provider has reviewed the documentation as recorded by the Sreedhar Jennings Provider Scribe Attestation: All medical record entries made by the Scribe were at my direction and personally dictated by me. I have reviewed the chart and agree that the record accurately reflects my personal performance of the history, physical exam, medical decision making, and the department course for this patient. I have also personally directed, reviewed, and agree with the discharge instructions and disposition. Disposition/Present on Arrival - Present on Arrival Any Indicators Present on Arrival: No History of DVT/PE: No History of Uncontrolled Diabetes: No Urinary Catheter: No History Surgical Site Infection Following: None - Disposition Have Diagnosis and Disposition been Completed?: Yes Diagnosis: Subdural hematoma, Alcohol abuse Disposition: HOME/ ROUTINE Disposition Time: 17:07 Patient Plan: Discharge Condition: GOOD Discharge Instructions (ExitCare): Subdural Hematoma (ED) Print Language: KAZAKH Additional Instructions: If you have any worsening headache or change in mental status, you need to return to Emergency department. Decrease alcohol use. Follow-up with your PMD within 2 days and Neurosurgery. Referrals: Elisha Rojo MD [Primary Care Provider] - Follow up with primary Hiram Chao MD [Staff Provider] - Follow up with primary [facility] [Outside] - Follow up with primary Forms: [employer] (Panamanian)
--- NOTE | 2017-05-30 15:12 | CT ---
PROCEDURE: CT HEAD WITHOUT CONTRAST. HISTORY: altered COMPARISON: 11/02/2016 TECHNIQUE: Axial computed tomography images were obtained through the head/brain without intravenous contrast. Radiation dose: Total exam DLP = 714 mGy-cm. This CT exam was performed using one or more of the following dose reduction techniques: Automated exposure control, adjustment of the mA and/or kV according to patient size, and/or use of iterative reconstruction technique. FINDINGS: HEMORRHAGE: No intracranial hemorrhage. 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 On the left side the maximum thickness is 15 mm and on the right side 10 mm. There is compression of the brain parenchyma with effacement of sulci and narrowing of the lateral ventricles. VENTRICLES: Compressed CALVARIUM: Unremarkable. PARANASAL SINUSES: Unremarkable as visualized. No significant inflammatory changes. MASTOID AIR CELLS: Unremarkable as visualized. No inflammatory changes. OTHER FINDINGS: Findings were discussed with Dr. Espitia at 3:10 p.m. IMPRESSION: Chronic bilateral subdural fluid collections are seen which have increased in size. On the left side the maximum thickness is 15 mm and on the right side 10 mm. There is compression of the brain parenchyma with effacement of sulci and narrowing of the lateral ventricles
--- NOTE | 2017-05-30 15:14 | CT ---
PROCEDURE: CT Cervical Spine without contrast HISTORY: Fall, alcohol abuse COMPARISON: None available. TECHNIQUE: Axial computed tomography images were obtained of the cervical spine without the use of intravenous contrast. Coronal and sagittal reformatted images were created and reviewed. Radiation dose: Total exam DLP = 692 mGy-cm. This CT exam was performed using one or more of the following dose reduction techniques: Automated exposure control, adjustment of the mA and/or kV according to patient size, and/or use of iterative reconstruction technique. FINDINGS: VERTEBRAE: No fracture. Normal alignment. No destructive bony lesion. DISCS/SPINAL CANAL/NEURAL FORAMINA: No significant central canal or neural foraminal stenosis. Disc degeneration at C5-6 PARASPINAL SOFT TISSUES: Unremarkable. OTHER FINDINGS: None. IMPRESSION: Unremarkable CT of the cervical spine.
[2017-05-30 15:32] LABS: BASO # 0.04 K/mm3 (0.0-2.0); BASO % 0.4 % (0.0-3.0); EOS # 0.1 (0.0-0.7); EOS % 0.7 % (1.5-5.0); GRAN # 4.6 (1.4-6.5); GRAN % 51.6 % (50.0-68.0); HEMATOCRIT 42.2 % (42.0-52.0); LYMPH # 3.8 (1.2-3.4); LYMPH % 42.4 % (22.0-35.0); MEAN CORPUSCULAR HGB CONC 35.1 g/dl (31.0-37.0); MEAN PLATELET VOLUME 10.1 fl (7.0-11.0); MONO # 0.4 (0.1-0.6); MONO % 4.9 % (1.0-6.0); RED CELL DISTRIBUTION WIDTH 12.9 % (11.5-14.5); WHITE BLOOD COUNT 8.9 10^3/ul (4.5-11.0)
[2017-05-30 15:43] LABS: ALB/GLOB RATIO 1.1 (1.1-1.8); ALKALINE PHOSPHATASE 90 U/L (38-126); ALT/SGPT 38 U/L (7-56); AST/SGOT 40 U/L (17-59); BILIRUBIN,TOTAL 0.7 mg/dL (0.2-1.3); BLOOD UREA NITROGEN 10 mg/dL (7-21); CARBON DIOXIDE 25 mmol/L (21-33); CHLORIDE 110 mmol/L (98-107); GFR AFRICAN-AMERICAN > 60; GLUCOSE,RANDOM 92 mg/dL (70-110); POTASSIUM 3.5 mmol/L (3.6-5.0); SODIUM 147 mmol/L (132-148); TOTAL PROTEIN 8.2 g/dL (5.8-8.3)
[2017-05-30 17:22] VITALS: BP 142/98; PULSE 67; RESP 18; O2SAT 95
[2017-05-30 17:31] LABS: INR 1.13 (0.93-1.08); PARTIAL THROMBOPLASTIN TIME 32.5 Seconds (25.1-36.5)
--- NOTE | 2017-05-31 20:09 | CARD ---
APPROVED REPORT EKG Measurement Heart [id number] <Conclusion> Normal sinus rhythm Moderate voltage criteria for LVH, may be normal variant Borderline ECG
== END 2017-05-30 17:14 | disposition home or self-care (01) ==
LOC: ED 13:14
DX: F10.10 Alcohol abuse, uncomplicated (principal); I62.00 Nontraumatic subdural hemorrhage, unspecified; I10 Essential (primary) hypertension

== ENCOUNTER 2017-07-04 22:52 | Emergency (ER) | payer OTHER ==
[2017-07-04 22:52] VITALS: BMI 28.8
[2017-07-04 23:03] VITALS: RESP 18; TEMP 97.5
--- NOTE | 2017-07-05 00:06 | ED PDOC ---
Arrival/HPI <Rafael Mcgee - Last Filed: 07/05/17 04:27> - General Historian: Patient - History of Present Illness Time/Duration: Other (tonight) Symptom Onset: Gradual Symptom Course: Unchanged Activities at Onset: Light <Maribell Maldonado PA-C - Last Filed: 07/07/17 23:42> - General Chief Complaint: Alcohol Ingestion Time Seen by Provider: 07/04/17 22:57 - History of Present Illness Narrative History of Present Illness (Text): 07/04/17 23:53 51 year old male, whose past medical history includes alcohol abuse, who presents to the Emergency department for alcohol intoxication. Patient states he drank too much alcohol tonight but denies any trauma/injury. Patient denies any fever, chills, chest pain, shortness of breath, nausea, vomiting, diarrhea, urinary symptoms, back pain, neck pain, headache, dizziness, or any other complaints. (Maribell Maldonado PA-C) Past Medical History - Provider Review Nursing Documentation Reviewed: Yes - Infectious Disease Hx of Infectious Diseases: None - Tetanus Immunization Tetanus Immunization: Unknown - Cardiac Hx Cardiac Disorders: Yes Hx Congestive Heart Failure: No Hx Hypertension: Yes - Pulmonary Hx Chronic Obstructive Pulmonary Disease (COPD): No - Neurological HX Cerebrovascular Accident: No - HEENT Hx HEENT Disorder: No Hx Blind: No Hx Cataracts: No Hx Deafness: No Hx Difficulty Chewing: No Hx Epistaxis: No Hx Glaucoma: No Hx Macular Degeneration: No - Renal Hx Renal Failure: No - Endocrine/Metabolic Hx Diabetes Mellitus Type 1: No Hx Diabetes Mellitus Type 2: No Hx Hypothyroidism: No - Hematological/Oncological Hx Blood Disorders: No Hx AIDS: No Hx Anemia: No Hx Cancer: No Hx Chemotherapy: No Hx Cirrhosis: No Hx Hemophilia: No Hx Hepatitis A: No Hx Hepatitis B: No Hx Hepatitis C: No Hx Metastasis: No Hx Shingles: No Hx Sickle Cell Disease: No Hx Unexplained Bleeding: No - Integumentary Hx Dermatological Disorder: No Hx Basal Cell Carcinoma: No Hx Eczema: No Hx Melanoma: No Hx Psoriasis: No Hx Squamous Cell Carcinoma: No - Musculoskeletal/Rheumatological Hx Arthritis: No - Gastrointestinal Hx Gastrointestinal Disorders: Yes Hx Colostomy: No Hx Crohn's Disease: No Hx Diverticulitis: No Hx Gall Bladder Disease: No Hx Gastroesophageal Reflux: No Hx Gastrointestinal Ulcer: No Hx Ileostomy: No Hx Liver Failure: No Hx Pancreatitis: No HX Swallowing Problems: No Other/Comment: Gastritis - Genitourinary/Gynecological Hx Genitourinary Disorders: No Hx Hematuria: No Hx Incontinence: No Hx Prostate Problems: No Hx Sexually Transmitted Diseases: No Hx Urinary Tract Infection: No - Psychiatric Hx Psychophysiologic Disorder: Yes Hx Anxiety: Yes Hx Bipolar Disorder: No Hx Depression: Yes Hx Emotional Abuse: No Hx Hallucinations: No Hx Panic Disorder: No Hx Post Traumatic Stress Disorder: No Hx Psychosis: No Hx Physical Abuse: No Hx Schizophrenia: No Hx Sexual Abuse: No Hx Substance Use: No - Past Surgical History Past Surgical History: Non-Contributing - Surgical History Hx Amputation: No Hx Appendectomy: No Hx Cardiac Catheterization: No Hx Cholecystectomy: No Hx Coronary Stent: No Hx Gastric Bypass Surgery: No Hx Hysterectomy: No Hx Joint Replacement: No Hx Kidney Transplant: No Hx Liver Transplant: No Hx Mastectomy: No Hx Musculoskeletal Surgery: No Hx Open Heart Surgery: No Hx Orthopedic Surgery: No Hx Splenectomy: No Hx Valve Replacement: No - Anesthesia Hx Anesthesia: Yes Hx Anesthesia Reactions: No Hx Malignant Hyperthermia: No - Suicidal Assessment Feels Threatened In Home Enviroment: No <Maribell Maldonado PA-C - Last Filed: 07/07/17 23:42> Family/Social History - Physician Review Nursing Documentation Reviewed: Yes Family/Social History: Unknown Family HX Smoking Status: Never Smoked Hx Alcohol Use: Yes Amount per day: 15 Hx Substance Use: No Hx Substance Use Treatment: Yes <Maribell Maldonado PA-C - Last Filed: 07/07/17 23:42> Allergies/Home Meds <Rafael Mcgee - Last Filed: 07/05/17 04:27> <Mraibell Maldonado PA-C - Last Filed: 07/07/17 23:42> Allergies/Adverse Reactions: Allergies No Known Allergies Allergy (Verified 10/17/16 20:10) Home Medications: Home Meds Medication Instructions Recorded Confirmed Unobtainable 07/05/17 07/05/17 Review of Systems - Physician Review All systems were reviewed & negative as marked: Yes - Review of Systems Constitutional: Normal. absent: Fevers Eyes: Normal ENT: Normal Respiratory: Normal. absent: SOB, Cough Cardiovascular: Normal. absent: Chest Pain Gastrointestinal: Normal. absent: Abdominal Pain, Diarrhea, Nausea, Vomiting Genitourinary Male: Normal. absent: Dysuria, Frequency, Hematuria, Urinary Output Changes Musculoskeletal: Normal. absent: Back Pain, Neck Pain Skin: Normal. absent: Rash Neurological: Normal. absent: Headache, Dizziness Endocrine: Normal Hemo/Lymphatic: Normal Psychiatric: Normal <Maribell Maldonado PA-C - Last Filed: 07/07/17 23:42> Physical Exam Vital Signs Reviewed: Yes Temperature: Afebrile Blood Pressure: Normal Pulse: Regular Respiratory Rate: Normal Appearance: Positive for: Well-Appearing, Non-Toxic, Comfortable, Other (Smells of alcohol) Pain Distress: None Mental Status: Positive for: Alert and Oriented X 3 - Systems Exam Head: Present: Atraumatic, Normocephalic Pupils: Present: PERRL Extroacular Muscles: Present: EOMI Conjunctiva: Present: Normal Mouth: Present: Moist Mucous Membranes Neck: Present: Normal Range of Motion Respiratory/Chest: Present: Clear to Auscultation, Good Air Exchange. No: Respiratory Distress, Accessory Muscle Use Cardiovascular: Present: Regular Rate and Rhythm, Normal S1, S2. No: Murmurs Abdomen: Present: Normal Bowel Sounds. No: Tenderness, Distention, Peritoneal Signs Back: Present: Normal Inspection Upper Extremity: Present: Normal Inspection. No: Cyanosis, Edema Lower Extremity: Present: Normal Inspection. No: Edema Neurological: Present: GCS=15, CN II-XII Intact, Speech Normal Skin: Present: Warm, Dry, Normal Color. No: Rashes Psychiatric: Present: Alert, Oriented x 3, Normal Insight, Normal Concentration , Intoxicated <Maribell Maldonado PA-C - Last Filed: 07/07/17 23:42> Vital Signs Temp Pulse Resp BP Pulse Ox 07/05/17 03:30 80 18 132/84 100 07/04/17 22:54 97.5 F L 84 18 146/88 99 Medical Decision Making <Rafael Mcgee - Last Filed: 07/05/17 04:27> <Maribell Maldonado PA-C - Last Filed: 07/07/17 23:42> ED Course and Treatment: 07/05/17 04:00 Pt awake, alert, ambulating with steady gait. Clinically sober. Pt stable for d/ c. (Rafael Mcgee) 07/04/17 23:53 Impression: 51 year old male presents for alcohol intoxication tonight. Differential Diagnosis included but are not limited to: alcohol abuse Plan: -- Reassess and disposition Progress Notes: On re-evaluation, patient still sleeping, but arouses easily, still not sober, will continue to observe. On second re-evaluation (Maribell Maldonado PA-C) - PA / GRAIN BLENDER / Resident Statement JAMIL has reviewed & agrees with the documentation as recorded. JAMIL has examined the patient and agrees with the treatment plan. <Rafael Mcgee - Last Filed: 07/05/17 04:27> - PA / GRAIN BLENDER / Resident Statement JAMIL has reviewed & agrees with the documentation as recorded. - Scribe Statement The provider has reviewed the documentation as recorded by the Scribe <Maribell Maldonado PA-C - Last Filed: 07/07/17 23:42> - Scribe Statement Orquidea Doss Provider Scribe Attestation: All medical record entries made by the Scribe were at my direction and personally dictated by me. I have reviewed the chart and agree that the record accurately reflects my personal performance of the history, physical exam, medical decision making, and the department course for this patient. I have also personally directed, reviewed, and agree with the discharge instructions and disposition. (Maribell Maldonado PA-C) Disposition/Present on Arrival - Present on Arrival Any Indicators Present on Arrival: No - Disposition Have Diagnosis and Disposition been Completed?: Yes Disposition Time: 04:00 Patient Plan: Discharge <Rafael Mcgee - Last Filed: 07/05/17 04:27> - Present on Arrival Any Indicators Present on Arrival: No History of DVT/PE: No History of Uncontrolled Diabetes: No Urinary Catheter: No History of Decub. Ulcer: No History Surgical Site Infection Following: None - Disposition Have Diagnosis and Disposition been Completed?: Yes <Maribell Maldonado PA-C - Last Filed: 07/07/17 23:42> - Disposition Diagnosis: Alcohol intoxication Disposition: HOME/ ROUTINE Condition: STABLE Discharge Instructions (ExitCare): Alcohol Intoxication (ED) Referrals: Alcoholics Anonymous [Outside] - Follow up with primary Forms: [employer] (Samoan)
[2017-07-05 05:03] VITALS: BP 132/84; PULSE 80; O2SAT 100
== END 2017-07-05 03:45 | disposition home or self-care (01) ==
LOC: ED 22:52
DX: F10.129 Alcohol abuse with intoxication, unspecified (principal); Y90.9 Presence of alcohol in blood, level not specified

== ENCOUNTER 2017-10-21 12:32 | Emergency (ER) | payer OTHER ==
[2017-10-21 12:32] VITALS: BMI 28.8
--- NOTE | 2017-10-21 13:32 | ED PDOC ---
Arrival/HPI - General Chief Complaint: Alcohol Ingestion Time Seen by Provider: 10/21/17 13:28 Historian: Patient - History of Present Illness Narrative History of Present Illness (Text): 10/21/17 13:29 52 y/o male, pmh including pancreatitis/diverticulitis, psychiatric history including alcohol abuse, nkda, biba for etoh intoxication and found in the public. Pt. is here at the ER department, +alcohol on breath, admits drinking, no abdominal pain, no fall or trauma, no medical or psychological complaints. Limited HPI can be obtained as he is intoxicated Past Medical History - Provider Review Nursing Documentation Reviewed: Yes - Infectious Disease Hx of Infectious Diseases: None - Tetanus Immunization Tetanus Immunization: Unknown - Cardiac Hx Cardiac Disorders: Yes Hx Congestive Heart Failure: No Hx Hypertension: Yes - Pulmonary Hx Respiratory Disorders: No - Neurological Hx Neurological Disorder: Yes Other/Comment: SUBDURAL BLEED - HEENT Hx HEENT Disorder: No - Renal Hx Renal Disorder: No - Endocrine/Metabolic Hx Endocrine Disorders: No - Hematological/Oncological Hx Blood Disorders: No - Integumentary Hx Dermatological Disorder: No - Musculoskeletal/Rheumatological Hx Arthritis: No - Gastrointestinal Hx Gastrointestinal Disorders: Yes Hx Diverticulitis: Yes Hx Pancreatitis: Yes Other/Comment: Gastritis - Genitourinary/Gynecological Hx Genitourinary Disorders: No - Psychiatric Hx Psychophysiologic Disorder: Yes Hx Anxiety: Yes Hx Depression: Yes Hx Substance Use: No - Past Surgical History Past Surgical History: Non-Contributing - Surgical History Other/Comment: UNOBTAINABLE - Anesthesia Hx Anesthesia: Yes Hx Anesthesia Reactions: No Hx Malignant Hyperthermia: No - Suicidal Assessment Feels Threatened In Home Enviroment: No Family/Social History - Physician Review Nursing Documentation Reviewed: Yes Family/Social History: Unknown Family HX Smoking Status: Never Smoked Hx Alcohol Use: Yes Amount per day: 15 Hx Substance Use: No Hx Substance Use Treatment: Yes Allergies/Home Meds Allergies/Adverse Reactions: Allergies No Known Allergies Allergy (Verified 10/21/17 12:50) Home Medications: Home Meds Medication Instructions Recorded Confirmed Unobtainable 07/05/17 10/21/17 Review of Systems - Review of Systems Systems not reviewed;Unavailable: Intoxicated Physical Exam - Physical Exam Physical Exam Limitations: Intoxication Vital Signs Reviewed: Yes Vital Signs Temp Pulse Resp BP Pulse Ox 10/21/17 13:54 98.3 F 84 18 138/84 98 04/20/18 12:56 98.1 F 79 17 146/92 H 95 Temperature: Afebrile Blood Pressure: Hypertensive Pulse: Regular Respiratory Rate: Normal Appearance: Positive for: Well-Appearing, Non-Toxic, Comfortable Pain Distress: None - Systems Exam Head: Present: Atraumatic, Normocephalic Pupils: Present: PERRL Extroacular Muscles: Present: EOMI Ears: Present: Normal, NORMAL TM, Normal Canal Nose (External): Present: Atraumatic. No: Abrasion, Contusion, Laceration Nose (Internal): Present: Normal Inspection, No Active Bleeding. No: Rhinorrhea , Septal Hematoma, Epistaxis Neck: No: MIDLINE TENDERNESS Respiratory/Chest: Present: Clear to Auscultation, Good Air Exchange. No: Respiratory Distress, Wheezes, Decreased Breath Sounds, Rhonchi, Tachypneic, Tender to Palpation Cardiovascular: Present: Regular Rate and Rhythm, Normal S1, S2. No: Murmurs Abdomen: No: Tenderness, Distention, Rebound, Guarding Back: Present: Normal Inspection. No: Midline Tenderness, Paraspinal Tenderness Upper Extremity: Present: Normal Inspection, Normal ROM, NORMAL PULSES, Capillary Refill < 2s. No: Deformity Lower Extremity: Present: Normal Inspection, NORMAL PULSES, Normal ROM, Neurovascularly Intact, Capillary Refill < 2 s. No: Tenderness, Swelling, Deformity Neurological: Present: Motor Func Grossly Intact, Memory Normal Skin: Present: Warm, Dry, Normal Color. No: Rashes Psychiatric: Present: Alert, Normal Insight, Intoxicated Medical Decision Making ED Course and Treatment: 10/21/17 13:31 -Finger stick -Observe until sober and reassess -Observe and reassess 10/21/17 18:27 -FS 100, easily arousable, 10/21/17 19:24 -Pt. is sobered, walking with normal gait and posture, admits drinking alot earlier. -Food and drinks given, tolerating well, request to be discharged home. -Pt. has no signs of withdrawal, no hand or tongue tremoring, no tongue fasciculation. -Pt. has no medical complaints. Pt. is aox4, refused detox, no homicidal or suicidal ideation, no auditor supervisor or visual hallucination. -Discharge home with education on avoid public intoxication, follow up with your own pmd within 2 days, return to the ER for any new or worsening signs or symptoms. - PA / WRITING MANAGER / Resident Statement / has reviewed & agrees with the documentation as recorded. Disposition/Present on Arrival - Present on Arrival Any Indicators Present on Arrival: No History of DVT/PE: No History of Uncontrolled Diabetes: No Urinary Catheter: No History of Decub. Ulcer: No History Surgical Site Infection Following: None - Disposition Have Diagnosis and Disposition been Completed?: Yes Diagnosis: Alcohol intoxication Disposition: HOME/ ROUTINE Disposition Time: 13:32 Patient Plan: Discharge Patient Problems: Current Active Problems Problem Status Onset Alcohol intoxication Acute Condition: GOOD Additional Instructions: -Discharge home with education on avoid public intoxication, follow up with your own pmd within 2 days, return to the ER for any new or worsening signs or symptoms. Referrals: Carline Machado DO [Primary Care Provider] - Follow up with primary Forms: WORK NOTE
[2017-10-21 19:47] VITALS: BP 139/91; RESP 18; TEMP 98
[2017-10-21 19:49] VITALS: PULSE 89; O2SAT 98
== END 2017-10-21 19:49 | disposition home or self-care (01) ==
LOC: ED 12:32
DX: F10.129 Alcohol abuse with intoxication, unspecified (principal)

== ENCOUNTER 2018-11-09 18:18 | Observation (INO) | payer OTHER ==
[2018-11-09 18:18] VITALS: BMI 28.8
[2018-11-09] MEDS ORDERED: Multivitamin (MVI) 10 ML, Thiamine 100 MG, Folic Acid 1 MG in Sodium Chloride 0.9% 1,00... IV ONE (19:08)
[2018-11-09] MEDS ORDERED: TDAP Vaccine 0.5 mL Syr IM ONE (19:08)
[2018-11-09 19:42] LABS: ALB/GLOB RATIO 1.1 (1.1-1.8); ALBUMIN 4.2 g/dL (3.0-4.8); ALT/SGPT 25 U/L (7-56); AST/SGOT 41 U/L (17-59); BASO # 0.02 K/mm3 (0.0-2.0); BASO % 0.1 % (0.0-3.0); BLOOD UREA NITROGEN 11 mg/dL (7-21); EOS % 0.1 % (1.5-5.0); GFR NON-AFRICAN AMERICAN > 60; HEMOGLOBIN 15.3 g/dL (14.0-18.0); LYMPH % 13.3 % (22.0-35.0); MEAN CELL VOLUME 88.9 fl (80.0-105.0); MEAN CORPUSCULAR HEMOGLOBIN 31.4 pg (25.0-35.0); MEAN CORPUSCULAR HGB CONC 35.3 g/dl (31.0-37.0); MEAN PLATELET VOLUME 10.3 fl (7.0-11.0); MONO # 1.3 (0.1-0.6); MONO % 8.9 % (1.0-6.0); RBC 4.88 10^6/uL (3.5-6.1); WHITE BLOOD COUNT 14.7 10^3/uL (4.5-11.0)
[2018-11-09 19:46] LABS: INR 1.14; PARTIAL THROMBOPLASTIN TIME 32.2 Seconds (26.9-38.3); PROTHROMBIN TIME 12.6 SECONDS (9.4-12.5)
--- NOTE | 2018-11-09 20:15 | ED PDOC ---
Arrival/HPI - General Chief Complaint: Eye Problem Time Seen by Provider: 11/09/18 18:41 Historian: Patient - History of Present Illness Narrative History of Present Illness (Text): 11/09/18 20:11 53-year-old male presents today brought in by his daughter for evaluation of head injury and fall. His daughter states that the patient has been drinking frequently and was found to have a head injury from unknown injury. Patient is complaining of headache and complaining of lower back pain and abdominal pain. He is complaining of decreased appetite today. No nausea vomiting diarrhea or constipation. No chest pain or shortness of breath. Unsure of his last tetanus shot. Patient's daughter states that the patient had 2 hematomas to the forehead that have resolved and now he has swelling to the eyes bilaterally. Patient denies neck pain. Patient states he did not drink alcohol today. No other complaints Past Medical History - Provider Review Nursing Documentation Reviewed: Yes - Travel History Have you recently traveled outside [place] w/in the past 3 mons?: No - Infectious Disease Hx of Infectious Diseases: None - Tetanus Immunization Tetanus Immunization: Unknown - Cardiac Hx Cardiac Disorders: Yes Hx Congestive Heart Failure: No Hx Hypertension: Yes - Pulmonary Hx Sleep Apnea: Yes - Neurological Hx Neurological Disorder: Yes Other/Comment: SUBDURAL BLEED - HEENT Hx HEENT Disorder: No - Renal Hx Renal Disorder: No - Endocrine/Metabolic Hx Endocrine Disorders: No - Hematological/Oncological Hx Blood Disorders: No - Integumentary Hx Dermatological Disorder: No - Musculoskeletal/Rheumatological Hx Arthritis: No - Gastrointestinal Hx Gastrointestinal Disorders: Yes Hx Diverticulitis: Yes Hx Pancreatitis: Yes Other/Comment: Gastritis - Genitourinary/Gynecological Hx Genitourinary Disorders: No - Psychiatric Hx Psychophysiologic Disorder: Yes Hx Anxiety: Yes Hx Depression: Yes Hx Substance Use: No - Past Surgical History Past Surgical History: Non-Contributing - Surgical History Other/Comment: UNOBTAINABLE - Anesthesia Hx Anesthesia: Yes Hx Anesthesia Reactions: No Hx Malignant Hyperthermia: No - Suicidal Assessment Feels Threatened In Home Enviroment: No Family/Social History - Physician Review Nursing Documentation Reviewed: Yes Family/Social History: Unknown Family HX Smoking Status: Never Smoked Hx Alcohol Use: Yes Frequency of alcohol use: Daily Amount per day: 15 Hx Substance Use: No Hx Substance Use Treatment: Yes Allergies/Home Meds Allergies/Adverse Reactions: Allergies No Known Allergies Allergy (Verified 10/21/17 12:50) Home Medications: Home Meds Medication Instructions Recorded Confirmed Unobtainable 07/05/17 10/21/17 Review of Systems - Review of Systems Constitutional: absent: Fatigue, Fevers Eyes: Other (swelling eye lids bilaterally). absent: Vision Changes, Photophobia Respiratory: absent: SOB, Cough Cardiovascular: absent: Chest Pain, Palpitations Gastrointestinal: Abdominal Pain, Appetite Changes. absent: Constipation, Diarrhea, Nausea, Vomiting Genitourinary Male: Other (no bladder or bowel incontinence). absent: Dysuria, Frequency, Hematuria, Urinary Output Changes Musculoskeletal: Back Pain. absent: Arthralgias, Neck Pain Skin: absent: Rash, Pruritis Neurological: Headache. absent: Dizziness Psychiatric: absent: Anxiety, Depression, Suicidal Ideation Physical Exam Vital Signs Reviewed: Yes Vital Signs Temp Pulse Resp BP Pulse Ox 11/09/18 18:31 98.4 F 116 H 18 145/101 H 97 Temperature: Afebrile Blood Pressure: Hypertensive Pulse: Tachycardic Respiratory Rate: Normal Appearance: Positive for: Well-Appearing, Non-Toxic, Comfortable Pain Distress: None Mental Status: Positive for: Alert and Oriented X 3 - Systems Exam Head: Present: Tenderness, Swelling (+ swelling to both upper and lower eyelids bilaterally. + ecchymosis noted to left upper eyelid. ), Abrasion (there is a large 6cm area of abrasion with crusting noted to the frontal scalp + ecchymosis noted posteriorly and frontal scalp. ) Pupils: Present: PERRL Extroacular Muscles: Present: EOMI. No: Entrapment Conjunctiva: Present: Normal. No: Injected Ears: Present: Normal, NORMAL TM Mouth: Present: Moist Mucous Membranes Pharnyx: Present: Normal Nose (External): Present: Atraumatic. No: Abrasion, Contusion, Laceration, Lesions Nose (Internal): Present: Normal Inspection. No: Septal Hematoma Neck: Present: Normal Range of Motion. No: MIDLINE TENDERNESS, Paraspinal Tenderness Respiratory/Chest: Present: Clear to Auscultation, Good Air Exchange, Other (no ecchymosis, no edema, no erythema. ). No: Respiratory Distress, Accessory Muscle Use, Tender to Palpation Cardiovascular: Present: Regular Rate and Rhythm, Normal S1, S2. No: Murmurs Abdomen: Present: Tenderness (+ minimal lower abdominal tenderness), Other (no ecchymosis). No: Distention, Rebound, Guarding Back: Present: Normal Inspection, Paraspinal Tenderness. No: Midline Tenderness Upper Extremity: Present: Normal Inspection, Normal ROM Lower Extremity: Present: Normal Inspection, Normal ROM Neurological: Present: GCS=15, Speech Normal, Motor Func Grossly Intact, Normal Sensory Function, Gait Normal Skin: Present: Warm, Dry, Normal Color Psychiatric: Present: Alert, Oriented x 3 Medical Decision Making ED Course and Treatment: 11/09/18 21:26 53yr old alcoholic male with fall, head injury, headache, decreased appetite. cbc; wbc;14.7 cmp: glucose; 122 inr; 1.14 ua: + blood After banana bag and 1 L of normal saline heart rate has improved EKG: Normal sinus rhythm at 82 bpm normal axis no ST elevations QTC [address]; FINDINGS: BRAIN: Again seen are chronic subdural collections, left greater than right, which causes some compression of the cerebral hemispheres. However, this appears unchanged in size as compared with May 30, [address] No midline shift seen. No CT evidence for acute intracranial hemorrhage. VENTRICLES: No hydrocephalus. ORBITS: The orbits are unremarkable. SINUSES AND MASTOIDS: The paranasal sinuses and mastoid air cells are clear. BONES: No evidence for displaced calvarial fracture. SOFT TISSUES: Unremarkable. MISCELLANEOUS: No evidence for acute territorial infarction. IMPRESSION: 1. Again seen are chronic subdural collections, left greater than right, which causes some compression of the cerebral hemispheres. However, this appears unchanged in size as compared with May 30, [address] evidence for acute intracranial abnormality. Electronically signed on November 09, 2018 11:02:06 PM EDT by: Saúl Patino M.D., Certified by [employer], Diagnostic Radiology maxillofacial ct:FINDINGS: BONES: No evidence for acute facial fractures. SOFT TISSUES: The soft tissues are unremarkable. SINUSES: The sinuses are clear. ORBITS: The orbits are normal. No retrobulbar hematoma or mass. MISCELLANEOUS: Degenerative changes of the right temporomandibular joint. These have progressed moderately since 2017. IMPRESSION: 1. Degenerative changes of the right temporomandibular joint. These have progressed moderately since 2017. 2. No evidence for acute facial fractures. Electronically signed on November 09, 2018 10:09:52 PM EDT by: Saúl Patino M.D., Certified by [employer], Diagnostic Radiology cervical spine:FINDINGS: ALIGNMENT: Bony alignment is anatomic. DEGENERATIVE CHANGES: No significant canal stenosis or neural foraminal narrowing evident. Moderate bilateral uncovertebral facet arthropathy is seen at C5-6 and C6-7. SOFT TISSUES: The prevertebral soft tissues are within normal limits. BONES: No acute fracture or aggressive appearing osseous lesion. Disc interspace narrowing is seen at C5-6 and C6-7 compatible with moderate-advanced degenerative disc disease. IMPRESSION: 1. No acute cervical spine abnormality. 2. Evidence of moderate-advanced degenerative disc disease at C5-6 and C6-7. 3. Moderate bilateral uncovertebral facet arthropathy at C5-6 and C6-7. Electronically signed on November 09, 2018 10:19:47 PM EDT by: Ángel Moreau M.D., M.B.A., Certified By [employer] Fellowship Trained MRI and CT Specialist chest/abd/pelvis: FINDINGS: CHEST: LUNGS: Mild dependent atelectasis in the lung bases. The lungs are free of consolidation, pleural effusion, pneumothorax, hemothorax significant pulmonary contusion. PLEURAL SPACES: No pneumothorax evident. No pleural effusions. HEART: The heart is moderately enlarged. LYMPH NODES: No lymphadenopathy is evident. ABDOMEN AND PELVIS: LIVER: There is diffuse fatty infiltration of liver. There is a 1.5 cm hypodensity in the left dome of the liver which does not meet criteria for a simple cyst and is therefore incompletely characterized. This may represent a slightly complex cyst although other etiologies are not excluded. GALLBLADDER AND BILE DUCTS: There is hyperdensity dependent mean the gallbladder, Likely representing small calculi and little changed from 2014. PANCREAS: Unremarkable. SPLEEN: Unremarkable. ADRENAL GLANDS: Unremarkable. KIDNEYS, URETERS, AND BLADDER: There is a 2 cm cyst at the upper pole of the left kidney. STOMACH AND BOWEL: Small hiatal hernia. Stomach is predominantly decompressed and grossly unremarkable. There is moderate colonic diverticulosis without convincing evidence for acute diverticulitis. Questionable mild areas of wall thickening in the sigmoid colon, versus underdistention. Please correlate clinically and if indicated this could be further evaluated with colonoscopy. No evidence for bowel obstruction. APPENDIX: Normal appendix in the right lower quadrant. PERITONEUM: No free fluid. No free air. LYMPH NODES: No lymphadenopathy is evident. VASCULATURE: The thoracic aorta demonstrates mild atherosclerotic calcification. The abdominal aorta is tortuous and mildly atherosclerotic without aneurysm. BONES: Mild to moderate multilevel degenerative spine changes. MISCELLANEOUS: There are multiple low density lesions within the thyroid, left greater than right. These could be further evaluated with thyroid sonogram if clinically indicated. Bladder is decompressed with questionable mild wall thickening versus underdistention. Please correlate clinically. Prostate is mildly enlarged measuring 5.1 cm transverse. This represents slight enlargement from the 2014 CT when it measured approximately 4.7 cm transverse. Small bilateral fat containing inguinal hernias. IMPRESSION: 1. No acute traumatic injury identified in the thorax, abdomen or pelvis. 2. Numerous incidental, nonacute findings as described above. Electronically signed on November 09, 2018 10:54:32 PM EDT by: Saúl Patino M.D., Certified by [employer], Diagnostic Radiology i spoke with Nanci at [facility] there are no detox beds available; pt was placed onto the waiting list for detox. all results discussed in depth with patient and family; Call placed to Dr. Chao; awaiting call back. case discussed with dr. machado; will admit obs for head injury, abnormal ct, subdural, abrasion, scalp. pt with htn and tachycardia; no signs of withdrawal at this time. 2nd call placed to neurosurgery; awaiting call back. impression; head injury, abnormal ct, abrasion of scalp, history of alcohol abuse, tachycardia, leukocytosis, HTN admit obs tele Reassessment Condition: Re-examined, Improved - Lab Interpretations Lab Results: PT 12.6 SECONDS (9.4-12.5) H 11/09/18 19:28 INR 1.14 11/09/18 19:28 APTT 32.2 Seconds (26.9-38.3) 11/09/18 19:28 Total Bilirubin 1.8 mg/dL (0.2-1.3) H 11/09/18 19:28 AST 41 U/L (17-59) 11/09/18 19:28 ALT 25 U/L (7-56) 11/09/18 19:28 Alkaline Phosphatase 92 U/L (38-126) 11/09/18 19: Total Protein 8.0 g/dL (5.8-8.3) 11/09/18 19:28 Albumin 4.2 g/dL (3.0-4.8) 11/09/18 19:28 Globulin 3.7 gm/dL 11/09/18 19:28 Albumin/Globulin Ratio 1.1 (1.1-1.8) 11/09/18 19:28 - RAD Interpretation Radiology Orders: 11/09/18 19:05 CERVICAL SPINE W/O CONTRAST [CT] Stat CHEST,ABD,PEL W/IV CONT ONLY [CT] Stat HEAD W/O CONTRAST [CT] Stat MAXILLOFACIAL W/O CONTRAST [CT] Stat - Medication Orders Current Medication Orders: Discontinued Medications Acetaminophen (Tylenol 325mg Tab) 650 mg PO STAT STA Stop: 11/09/18 19:37 Last Admin: 11/09/18 19:51 Dose: 650 mg Multivitamins/Vitamin C 10 ml/Thiamine HCl 100 mg/ Folic Acid 1 mg/ Sodium Chloride 1,011.2 mls @ 1,000 mls/hr IV .Q1H1M ONE Stop: 11/09/18 20:08 Last Admin: 11/09/18 19:50 Dose: 1,000 mls/hr eMAR Start Stop Document 11/09/18 19:50 SS (Rec: 11/09/18 19:51 SS [id number]) Intravenous Solution Start Date 11/09/18 Start Time 19:51 End Date 11/09/18 End time 20:51 Total Infusion Time 60 Tetanus/Reduced Diphtheria/Acell Pertussis (Boostrix Vaccine Inj) 0.5 ml IM .ONCE ONE Stop: 11/09/18 19:09 Last Admin: 11/09/18 19:29 Dose: 0.5 ml Immunization Registry Document 11/09/18 19:29 SS (Rec: 11/09/18 19:30 SS [id number]) [facility]-Date provided 11/09/18 Disposition/Present on Arrival - Present on Arrival Any Indicators Present on Arrival: No History of DVT/PE: No History of Uncontrolled Diabetes: No Urinary Catheter: No History of Decub. Ulcer: No History Surgical Site Infection Following: None - Disposition Have Diagnosis and Disposition been Completed?: Yes Diagnosis: Tachycardia, Head injury, Abnormal CT of brain, Abrasion, scalp w/o infection, Subdural hematoma, chronic, Hypertension Disposition: HOSPITALIZED Disposition Time: 01:00 Patient Plan: Observation Patient Problems: Current Active Problems Problem Status Onset Abnormal CT of brain Acute Abrasion, scalp w/o infection Acute Head injury Acute Subdural hematoma, chronic Acute Tachycardia Acute Condition: FAIR
[2018-11-09 21:19] LABS: PH,URINE 6.5 (4.7-8.0); URINE BILIRUBIN NEGATIVE (NEGATIVE); URINE BLOOD TRACE-INTACT (NEGATIVE); URINE GLUCOSE (UA) NEGATIVE (NEGATIVE); URINE LEUKOCYTE ESTERASE NEGATIVE Leu/uL (NEGATIVE); URINE PROTEIN NEGATIVE mg/dL (<30 mg/dL); URINE UROBILINOGEN 0.2 E.U./dL (<1 E.U./dL)
[2018-11-09 21:24] LABS: URINE APPEARANCE CLEAR (CLEAR); URINE COLOR YELLOW (YELLOW)
[2018-11-09 23:04] LABS: ACETAMINOPHEN < 10.0 ug/ml (10.0-20.0); SALICYLATE < 1 mg/dL (2.0-20.0)
[2018-11-09 23:52] LABS: BARBITURATES, UR NEGATIVE (NEGATIVE); BENZODIAZEPINES, UR NEGATIVE (NEGATIVE); OPIATES, UR NEGATIVE (NEGATIVE); PHENCYCLIDINE, UR NEGATIVE (NEGATIVE)
[2018-11-09] MEDS ORDERED: Sodium Chloride 0.9% 1,000 ML IV STA (23:52)
--- NOTE | 2018-11-10 00:13 | CP.PCM.HP ---
<CristoferKim - Last Filed: 11/10/18 04:47> History of Present Illness - History of Present Illness History of Present Illness: HISTORY & PHYSICAL NOTE FOR HOSPITALIST SERVICE- DR. JODY CLEVELAND PGY1 53 y/o M with PMHx ETOH abuse, HTN, anxiety, depression presents to ED after he noticed redness and swelling around both of his eyes. Pt reports about 3 days ago he was drinking a lot more than usual whiskey when he was very drunk and fell. He reports he doesn't remember falling or loss of consciousness because he was drunk. He woke up to abrasions on his head with some bleeding that has stopped. He presented to ED today because he was concerned as he noted bilateral ecchymoses around his eyes. He hasn't had any weakness, numbness, tingling, confusion, photophobia since the event. He reports he doesn't remember falling like this before. He reports he has "sciatica" on his left side that he has had for several months prior. He denies any current pain or symptoms. He is comfortable denying fevers, chills, headache, dizziness, numbness, tingling, we akness, confusion, chest pain, palpitations, shortness of breath, nausea, vomiting, constipation, diarrhea, dysuria, hematuria. PMH: HTN, ETOH abuse, anxiety, depression All: NKDA PSH: denies SH: Has drank 3-4 glasses/whiskey several times a week x 10 years. Denies tobacco, illicit drug. Lives @ home with & son. Hosp: denies recent hospitalizations FH: M: : stomach cancer. F: : passed from automobile accident Meds: metoprolol 10mg (per patient, no metoprolol 10mg on formulary). Pt was discharged with metoprolol succinate 100mg in 2017, will start at this dose however will need to confirm dose when pharmacy opens in am, med rec not completed d/t no metoprolol 10mg dosage) PMD: Dr. Danielle Gregg Pharmacy: [facility] Present on Admission - Present on Admission Any Indicators Present on Admission: No Review of Systems - Review of Systems Review of Systems: per HPI Past Patient History - Infectious Disease Hx of Infectious Diseases: None - Tetanus Immunizations Tetanus Immunization: Unknown - Past Medical History & Family History Past Medical History?: Yes - Past Social History Smoking Status: Never Smoked - CARDIAC Hx Cardiac Disorders: Yes Hx Congestive Heart Failure: No Hx Hypertension: Yes - PULMONARY Hx Sleep Apnea: Yes - NEUROLOGICAL Hx Neurological Disorder: Yes Other/Comment: SUBDURAL BLEED - HEENT Hx HEENT Problems: No - RENAL Hx Chronic Kidney Disease: No - ENDOCRINE/METABOLIC Hx Endocrine Disorders: No - HEMATOLOGICAL/ONCOLOGICAL Hx Blood Disorders: No - INTEGUMENTARY Hx Dermatological Problems: No - MUSCULOSKELETAL/RHEUMATOLOGICAL Hx Arthritis: No - GASTROINTESTINAL Hx Gastrointestinal Disorders: Yes Hx Diverticulitis: Yes Hx Pancreatitis: Yes Other/Comment: Gastritis - GENITOURINARY/GYNECOLOGICAL Hx Genitourinary Disorders: No - PSYCHIATRIC Hx Psychophysiologic Disorder: Yes Hx Anxiety: Yes Hx Depression: Yes Hx Substance Use: No - SURGICAL HISTORY Other/Comment: UNOBTAINABLE - ANESTHESIA Hx Anesthesia: Yes Hx Anesthesia Reactions: No Hx Malignant Hyperthermia: No Meds Allergies/Adverse Reactions: Allergies Allergy/AdvReac Type Severity Reaction Status Date / Time No Known Allergies Allergy Verified 10/21/17 12:50 Physical Exam - Constitutional Appears: Well, Non-toxic, No Acute Distress - Head Exam Additional comments: Erythema noted in scalp region, well healed Abrasion noted on forehead, well healed Results - Vital Signs Recent Vital Signs: Last Vital Signs Temp 98.4 F 11/09/18 18:31 Pulse 98 H 11/10/18 00:03 Resp 18 11/10/18 00:03 BP 145/101 H 11/09/18 18:31 Pulse Ox 100 11/10/18 00:03 - Labs Result Diagrams: 11/09/18 19:28 11/09/18 19:28 Labs: Laboratory Results - last 24 hr 11/09/18 11/09/18 11/09/18 19:28 19:28 19:28 WBC 14.7 H RBC 4.88 Hgb 15.3 Hct 43.4 MCV 88.9 D MCH 31.4 MCHC 35.3 RDW 14.0 Plt Count 238 MPV 10.3 Neut % (Auto) 77.6 H Lymph % (Auto) 13.3 L [place] % (Auto) 8.9 H Eos % (Auto) 0.1 L Baso % (Auto) 0.1 Lymph # (Auto) 2.0 [place] # (Auto) 1.3 H Eos # (Auto) 0.0 Baso # (Auto) 0.02 Absolute Neuts (auto) 11.37 H PT INR APTT Sodium 138 Potassium 3.5 L Chloride 103 Carbon Dioxide 23 Anion Gap 16 BUN 11 Creatinine 0.7 L Est GFR ( Amer) > 60 Est GFR (Non-Af Amer) > 60 Random Glucose 122 H Calcium 9.0 Total Bilirubin 1.8 H AST 41 ALT 25 Alkaline Phosphatase 92 Total Protein 8.0 Albumin 4.2 Globulin 3.7 Albumin/Globulin Ratio 1.1 Urine Color Urine Appearance Urine pH Ur Specific [place] Urine Protein Urine Glucose (UA) Urine Ketones Urine Blood Urine Nitrate Urine Bilirubin Urine Urobilinogen Ur Leukocyte Esterase Urine RBC Urine WBC Ur Epithelial Cells Salicylates Urine Opiates Screen Urine Methadone Screen Acetaminophen Ur Barbiturates Screen Ur Phencyclidine Scrn Ur Amphetamines Screen U Benzodiazepines Scrn U Oth Cocaine Metabols U Cannabinoids Screen Alcohol, Quantitative < 10 11/09/18 11/09/18 11/09/18 19:28 21:10 22:53 WBC RBC Hgb Hct MCV MCH MCHC RDW Plt Count MPV Neut % (Auto) Lymph % (Auto) [place] % (Auto) Eos % (Auto) Baso % (Auto) Lymph # (Auto) [place] # (Auto) Eos # (Auto) Baso # (Auto) Absolute Neuts (auto) PT 12.6 H INR 1.14 APTT 32.2 Sodium Potassium Chloride Carbon Dioxide Anion Gap BUN Creatinine Est GFR ( Amer) Est GFR (Non-Af Amer) Random Glucose Calcium Total Bilirubin AST ALT Alkaline Phosphatase Total Protein Albumin Globulin Albumin/Globulin Ratio Urine Color Yellow Urine Appearance Clear Urine pH 6.5 Ur Specific [place] 1.010 Urine Protein Negative Urine Glucose (UA) Negative Urine Ketones Negative Urine Blood Trace-intact H Urine Nitrate Negative Urine Bilirubin Negative Urine Urobilinogen 0.2 Ur Leukocyte Esterase Negative Urine RBC 5 - 10 H Urine WBC 2 - 5 Ur Epithelial Cells 4 - 5 Salicylates < 1 L Urine Opiates Screen Urine Methadone Screen Acetaminophen < 10.0 L Ur Barbiturates Screen Ur Phencyclidine Scrn Ur Amphetamines Screen U Benzodiazepines Scrn U Oth Cocaine Metabols U Cannabinoids Screen Alcohol, Quantitative 11/09/18 23:00 WBC RBC Hgb Hct MCV MCH MCHC RDW Plt Count MPV Neut % (Auto) Lymph % (Auto) [place] % (Auto) Eos % (Auto) Baso % (Auto) Lymph # (Auto) [place] # (Auto) Eos # (Auto) Baso # (Auto) Absolute Neuts (auto) PT INR APTT Sodium Potassium Chloride Carbon Dioxide Anion Gap BUN Creatinine Est GFR ( Amer) Est GFR (Non-Af Amer) Random Glucose Calcium Total Bilirubin AST ALT Alkaline Phosphatase Total Protein Albumin Globulin Albumin/Globulin Ratio Urine Color Urine Appearance Urine pH Ur Specific [place] Urine Protein Urine Glucose (UA) Urine Ketones Urine Blood Urine Nitrate Urine Bilirubin Urine Urobilinogen Ur Leukocyte Esterase Urine RBC Urine WBC Ur Epithelial Cells Salicylates Urine Opiates Screen Negative Urine Methadone Screen Negative Acetaminophen Ur Barbiturates Screen Negative Ur Phencyclidine Scrn Negative Ur Amphetamines Screen Negative U Benzodiazepines Scrn Negative U Oth Cocaine Metabols Negative U Cannabinoids Screen Negative Alcohol, Quantitative Assessment & Plan - Assessment and Plan (Free Text) Assessment: 53 y/o M with PMHX of ETOH abuse, HTN, anxiety, depression admitted for questionable head injury with chronic subdural hematomas seen on CT scan as well as ETOH withdrawal Plan: ETOH withdrawal Not showing acute signs of withdrawal. Hx of withdrawals in the past. Received 1L banana bag bolus in ED. start CIWA protocol, aspiration precautions, seizure precautions, neuro checks LFTs wnl Ativan prn, librium prn. Will bolus another 1L banana bag IVF, will continue maintenance IVF @100mls/hr Replete electrolytes physical therapy eval & treat for d/c planning Chronic subdural hematoma CTH 11/09 (prelim):: 1. Again seen are chronic subdural collections, left greater than right, which causes some compression of the cerebral hemispheres. However, this appears unchanged in size as compared with May 30, [address] evidence for acute intracranial abnormality. Maxillofacial CT 11/09 (prelim) 1. Degenerative changes of the right temporomandibular joint. These have progressed moderately since 2017. 2. No evidence for acute facial fractures. CT cervical spine 11/09: 1. No acute cervical spine abnormality. 2. Evidence of moderate-advanced degenerative disc disease at C5-6 and C6-7. 3. Moderate bilateral uncovertebral facet arthropathy at C5-6 and C6-7. No acute focal neurological deficits. ED PA had contacted neurosurgery, awaiting recs Will monitor neuro checks Neurology/Neurosurgery consulted Will f/u official radiology read by in-house radiologist HTN Will start metoprolol 100mg as patient was discharged with this in 2017. Pt is hypertensive, tachycardiac currently Pt is reporting metoprolol 10mg however there is no 10mg dose of metoprolol. The med rec is not completed as there is no 10mg of metoprolol. Medication dosage needs to be confirmed when pharmacy is open DVT/GI: will avoid anticoagulation given chronic subdural hematoma. SCD/pepcid Pt seen, examined and discussed with attending physician, Dr. Jody Cleveland PGY1 <Alexus Vrea - Last Filed: 11/10/18 21:49> Results - Vital Signs Recent Vital Signs: Last Vital Signs Temp 97.8 F 11/10/18 12:00 Pulse 93 H 11/10/18 14:00 Resp 19 11/10/18 12:00 BP 117/68 11/10/18 12:00 Pulse Ox 97 11/10/18 06:00 - Labs Result Diagrams: 11/10/18 06:20 11/10/18 14:30 Labs: Laboratory Results - last 24 hr 11/09/18 11/09/18 11/09/18 19:28 22:53 23:00 WBC RBC Hgb Hct MCV MCH MCHC RDW Plt Count MPV Neut % (Auto) Lymph % (Auto) [place] % (Auto) Eos % (Auto) Baso % (Auto) Lymph # (Auto) [place] # (Auto) Eos # (Auto) Baso # (Auto) Absolute Neuts (auto) Sodium Potassium Chloride Carbon Dioxide Anion Gap BUN Creatinine Est GFR ( Amer) Est GFR (Non-Af Amer) Random Glucose Calcium Phosphorus 3.0 Magnesium 1.5 L Total Bilirubin AST ALT Alkaline Phosphatase Total Protein Albumin Globulin Albumin/Globulin Ratio Salicylates < 1 L Urine Opiates Screen Negative Urine Methadone Screen Negative Acetaminophen < 10.0 L Ur Barbiturates Screen Negative Ur Phencyclidine Scrn Negative Ur Amphetamines Screen Negative U Benzodiazepines Scrn Negative U Oth Cocaine Metabols Negative U Cannabinoids Screen Negative 11/10/18 11/10/18 11/10/18 06:20 06:20 14:30 WBC 8.4 D RBC 4.27 Hgb 13.1 L D Hct 38.3 L MCV 89.7 MCH 30.7 MCHC 34.2 RDW 14.1 Plt Count 189 MPV 10.4 Neut % (Auto) 59.9 Lymph % (Auto) 28.5 [place] % (Auto) 10.8 H Eos % (Auto) 0.7 L Baso % (Auto) 0.1 Lymph # (Auto) 2.4 [place] # (Auto) 0.9 H Eos # (Auto) 0.1 Baso # (Auto) 0.01 Absolute Neuts (auto) 5.02 Sodium 136 136 Potassium 3.3 L 3.4 L Chloride 104 103 Carbon Dioxide 24 25 Anion Gap 11 12 BUN 8 9 Creatinine 0.7 L 0.8 Est GFR ( Amer) > 60 > 60 Est GFR (Non-Af Amer) > 60 > 60 Random Glucose 109 115 H Calcium 8.5 8.9 Phosphorus 2.7 Magnesium 1.6 L Total Bilirubin 2.0 H AST 32 ALT 19 Alkaline Phosphatase 69 Total Protein 6.5 Albumin 3.4 Globulin 3.1 Albumin/Globulin Ratio 1.1 Salicylates Urine Opiates Screen Urine Methadone Screen Acetaminophen Ur Barbiturates Screen Ur Phencyclidine Scrn Ur Amphetamines Screen U Benzodiazepines Scrn U Oth Cocaine Metabols U Cannabinoids Screen Attending/Attestation - Attestation I have personally seen and examined this patient.: Yes I have fully participated in the care of the patient.: Yes I have reviewed all pertinent clinical information: Yes
[2018-11-10] MEDS ORDERED: Potassium Chloride 20 mEq ER Tab PO STA (00:33)
[2018-11-10] MEDS ORDERED: Multivitamin (MVI) 10 ML, Thiamine 100 MG, Folic Acid 1 MG in Dextrose 5% In Water 1,00... IV ONE (00:34)
[2018-11-10] MEDS ORDERED: Folic Acid 1 MG, Thiamine 100 MG, Multivitamin (MVI) 10 ML in Dextrose 5% In Water 1,00... IV SCH (02:00)
[2018-11-10 06:16] VITALS: O2SAT 97
[2018-11-10 06:52] LABS: BASO # 0.01 K/mm3 (0.0-2.0); BASO % 0.1 % (0.0-3.0); EOS # 0.1 (0.0-0.7); EOS % 0.7 % (1.5-5.0); LYMPH # 2.4 (1.2-3.4); LYMPH % 28.5 % (22.0-35.0); MEAN CELL VOLUME 89.7 fl (80.0-105.0); MEAN CORPUSCULAR HEMOGLOBIN 30.7 pg (25.0-35.0); MEAN CORPUSCULAR HGB CONC 34.2 g/dl (31.0-37.0); MEAN PLATELET VOLUME 10.4 fl (7.0-11.0); MONO # 0.9 (0.1-0.6); MONO % 10.8 % (1.0-6.0); RBC 4.27 10^6/uL (3.5-6.1); RED CELL DISTRIBUTION WIDTH 14.1 % (11.5-14.5); WHITE BLOOD COUNT 8.4 10^3/uL (4.5-11.0)
[2018-11-10 07:09] LABS: HEMOGLOBIN 13.1 g/dL (14.0-18.0)
[2018-11-10 07:15] LABS: ALB/GLOB RATIO 1.1 (1.1-1.8); ALBUMIN 3.4 g/dL (3.0-4.8); ALT/SGPT 19 U/L (7-56); AST/SGOT 32 U/L (17-59); BLOOD UREA NITROGEN 8 mg/dL (7-21); CALCIUM 8.5 mg/dL (8.4-10.5); GFR NON-AFRICAN AMERICAN > 60
[2018-11-10] MEDS ORDERED: Metoprolol Succinate 100 mg XL Tab PO SCH (08:00)
[2018-11-10] MEDS ORDERED: Magnesium Oxide 400 mg Tab UD PO ONE (08:19)
--- NOTE | 2018-11-10 08:54 | CP.PCM.PN ---
Subjective - Date & Time of Evaluation Date of Evaluation: 11/10/18 Time of Evaluation: 08:53 - Subjective Subjective: pt known to us has been adm for reddness around eyes CT shows kiana csdh unchanged from 2017 no new neuro complaints no surgery indicated at this time Objective - Vital Signs/Intake and Output Vital Signs (last 24 hours): Temp Pulse Resp BP Pulse Ox 98.1 F 77 18 143/92 H 97 11/10/18 06:00 11/10/18 08:44 11/10/18 06:00 11/10/18 08:44 11/10/18 06:00 Intake and Output: 11/10/18 11/10/18 06:59 18:59 Intake Total 600 Output Total 400 Balance 200 - Medications Medications: Current Medications Chlordiazepoxide (Librium) 10 mg PO Q8 PRN; Protocol PRN Reason: Symptoms of alcohol withdrawl Folic Acid 1 mg/ Thiamine HCl 100 mg/ Multivitamins/Vitamin C 10 ml/ Dextrose 1,011.2 mls @ 100 mls/hr IV .[id number] [facility] Last Admin: 11/10/18 01:57 Dose: 100 mls/hr Lorazepam (Ativan) 1 mg IVP Q6H PRN; Protocol PRN Reason: Anxiety Last Admin: 11/10/18 02:11 Dose: 1 mg Metoprolol Succinate (Toprol Xl) 100 mg PO BRK [facility] Last Admin: 11/10/18 08:44 Dose: 100 mg Potassium Chloride (K-Dur 20 Meq Er Tab) 40 meq PO BID [facility] Stop: 11/10/18 18:01 - Labs Labs: 11/10/18 06:20 11/10/18 06:20 PT 12.6 SECONDS (9.4-12.5) H 11/09/18 19:28 INR 1.14 11/09/18 19:28 APTT 32.2 Seconds (26.9-38.3) 11/09/18 19:28
--- NOTE | 2018-11-10 09:33 | CARD ---
APPROVED REPORT Date of service: 11/10/2018 EKG Measurement Heart [id number] <Conclusion> Normal sinus rhythm Minimal voltage criteria for LVH, may be normal variant Inferior infarct, age undetermined Abnormal ECG
[2018-11-10] MEDS: Potassium Chloride 20 mEq ER Tab PO SCH ×2 (09:48→17:30)
--- NOTE | 2018-11-10 10:06 | CT ---
Date of service: 11/09/2018 PROCEDURE: CT HEAD WITHOUT CONTRAST. HISTORY: headache/ head injury COMPARISON: 05/30/2017 TECHNIQUE: Axial computed tomography images were obtained through the head/brain without intravenous contrast. Radiation dose: Total exam DLP = 880.27 mGy-cm. This CT exam was performed using one or more of the following dose reduction techniques: Automated exposure control, adjustment of the mA and/or kV according to patient size, and/or use of iterative reconstruction technique. FINDINGS: HEMORRHAGE: No intracranial hemorrhage. BRAIN: Chronic bilateral subdural fluid collections are seen left greater than right. There is no significant change. The left-sided collection measures 16 mm in thickness and the right side 12 mm. No atrophy or chronic microvascular ischemic changes. VENTRICLES: Unremarkable. No hydrocephalus. CALVARIUM: Unremarkable. PARANASAL SINUSES: Unremarkable as visualized. No significant inflammatory changes. MASTOID AIR CELLS: Unremarkable as visualized. No inflammatory changes. OTHER FINDINGS: The report concurs with the preliminary [facility] report IMPRESSION: Chronic bilateral subdural fluid collections are seen left greater than right. There is no significant change. The left-sided collection measures 16 mm in thickness and the right side 12 mm.
--- NOTE | 2018-11-10 10:10 | CT ---
Date of service: 11/09/2018 PROCEDURE: CT MAXILLOFACIAL BONES WITHOUT CONTRAST HISTORY: + swelling to orbits bilaterally COMPARISON: None available. TECHNIQUE: Contiguous axial CT images of the maxillofacial bones were obtained. Coronal and sagittal reformats were generated. Radiation dose: Total exam DLP = 770.36 mGy-cm. This CT exam was performed using one or more of the following dose reduction techniques: Automated exposure control, adjustment of the mA and/or kV according to patient size, and/or use of iterative reconstruction technique. FINDINGS: NASAL BONES: Unremarkable. ORBITS: Unremarkable. PARANASAL SINUSES/ MASTOIDS: Clear. MAXILLA: Unremarkable. MANDIBLE/ TEMPOROMANDIBULAR JOINTS: Unremarkable. SKULL BASE: Unremarkable. TEMPORAL BONES: Middle ears and mastoid grossly unremarkable. OTHER FINDINGS: The report concurs with the preliminary [facility] report IMPRESSION: No acute findings
--- NOTE | 2018-11-10 10:13 | CT ---
Date of service: 11/09/2018 PROCEDURE: CT Cervical Spine without contrast HISTORY: fall COMPARISON: None available. TECHNIQUE: Axial computed tomography images were obtained of the cervical spine without the use of intravenous contrast. Coronal and sagittal reformatted images were created and reviewed. Radiation dose: Total exam DLP = 582.28 mGy-cm. This CT exam was performed using one or more of the following dose reduction techniques: Automated exposure control, adjustment of the mA and/or kV according to patient size, and/or use of iterative reconstruction technique. FINDINGS: VERTEBRAE: No fracture. Normal alignment. No destructive bony lesion. DISCS/SPINAL CANAL/NEURAL FORAMINA: No significant central canal or neural foraminal stenosis. Disc degeneration at C5-6 and C6-7 PARASPINAL SOFT TISSUES: Unremarkable. OTHER FINDINGS: The report concurs with the preliminary [facility] report IMPRESSION: No acute findings
--- NOTE | 2018-11-10 10:34 | CT ---
Date of service: 11/09/2018 PROCEDURE: CT Chest, Abdomen and Pelvis with intravenous contrast HISTORY: trauma/ abd pain/low back pain COMPARISON: None available. TECHNIQUE: IV dose administered: 150 cc of Omni 350 Radiation dose: Total exam DLP = 1832.03 mGy-cm. This CT exam was performed using one or more of the following dose reduction techniques: Automated exposure control, adjustment of the mA and/or kV according to patient size, and/or use of iterative reconstruction technique. FINDINGS: CT CHEST WITH CONTRAST: LUNGS: Clear. No nodule, mass or consolidation. MEDIASTINUM: Unremarkable. Normal caliber aorta and pulmonary arterial trunk. No aortic dissection. Normal size heart. LYMPH NODES: Unremarkable. PLEURA: Unremarkable. No pneumothorax. No pleural fluid. BONES: Unremarkable. OTHER FINDINGS: None. CT ABDOMEN AND PELVIS: LIVER: Unremarkable. No gross lesion or ductal dilatation. GALLBLADDER AND BILE DUCTS: Small stones are layered in the gallbladder PANCREAS: Unremarkable. No gross lesion or ductal dilatation. SPLEEN: Unremarkable. ADRENALS: Unremarkable. No mass. KIDNEYS AND URETERS: Unremarkable. No hydronephrosis. No solid mass. VASCULATURE: No aortic atherosclerotic calcification or mural plaque present. Unremarkable. No aortic aneurysm. BOWEL: Unremarkable. No obstruction. No gross mural thickening. APPENDIX: Normal appendix. PERITONEUM: Unremarkable. No free fluid. No free air. LYMPH NODES: Unremarkable. No enlarged lymph nodes. BLADDER: Unremarkable. REPRODUCTIVE: Unremarkable. BONES: Multilevel disc degeneration OTHER FINDINGS: The report concurs with the preliminary [facility] report IMPRESSION: No acute intrathoracic or intra-abdominal findings.
--- NOTE | 2018-11-10 12:25 | CP.PCM.CON ---
History of Present Illness - History of Present Illness History of Present Illness: neurology consult dictated Neurology consult called by Dr. Palacios for Mr Franklyn who presented after a fall with bilateral subdural hematomas, not surgical candidate. Appreciate neurosurgical consult. A/p: Patient with chronic subdural hygromas secondary to multiple falls due to alcoholism. HE is not a surgical candidate at this time, and is not having seizures. PLan; 1. no further neurological recommendation at this time. 2. Alcohol rehab Thank you DR. camarena Neurology Past Patient History - Infectious Disease Hx of Infectious Diseases: None - Tetanus Immunizations Tetanus Immunization: Unknown - Past Medical History & Family History Past Medical History?: Yes - Past Social History Smoking Status: Never Smoked - CARDIAC Hx Hypertension: Yes - PULMONARY Hx Sleep Apnea: Yes - NEUROLOGICAL Hx Neurological Disorder: Yes Other/Comment: SUBDURAL BLEED - HEENT Hx HEENT Problems: No - RENAL Hx Chronic Kidney Disease: No - ENDOCRINE/METABOLIC Hx Endocrine Disorders: No - HEMATOLOGICAL/ONCOLOGICAL Hx Blood Disorders: No - INTEGUMENTARY Hx Dermatological Problems: No - MUSCULOSKELETAL/RHEUMATOLOGICAL Hx Arthritis: No - GASTROINTESTINAL Hx Gastrointestinal Disorders: Yes Hx Diverticulitis: Yes Hx Pancreatitis: Yes Other/Comment: Gastritis - GENITOURINARY/GYNECOLOGICAL Hx Genitourinary Disorders: No - PSYCHIATRIC Hx Psychophysiologic Disorder: Yes Hx Anxiety: Yes Hx Depression: Yes Hx Substance Use: No - SURGICAL HISTORY Other/Comment: UNOBTAINABLE - ANESTHESIA Hx Anesthesia: Yes Hx Anesthesia Reactions: No Hx Malignant Hyperthermia: No Meds Home Medications: Home Medication List Medication Instructions Recorded Confirmed Type Folic Acid 1 mg PO DAILY #30 tab 11/10/18 Rx Metoprolol Succinate XL [Toprol XL] 100 mg PO BRK tab 11/10/18 Rx Multivitamin Therapeutic Tab 1 tab PO DAILY #30 tab 11/10/18 Rx [Thera Tab] Thiamine [Vitamin B1 Tab] 100 mg PO DAILY #30 tab 11/10/18 Rx Allergies/Adverse Reactions: Allergies Allergy/AdvReac Type Severity Reaction Status Date / Time No Known Allergies Allergy Verified 10/21/17 12:50 - Medications Medications: Current Medications Chlordiazepoxide (Librium) 10 mg PO Q8 PRN; Protocol PRN Reason: Symptoms of alcohol withdrawl Folic Acid (Folic Acid) 1 mg PO DAILY [facility] Lorazepam (Ativan) 1 mg IVP Q6H PRN; Protocol PRN Reason: Anxiety Last Admin: 05/10/19 02:11 Dose: 1 mg Metoprolol Succinate (Toprol Xl) 100 mg PO BRK RICHARD Last Admin: 11/10/18 08:44 Dose: 100 mg Multivitamins (Thera Tab) 1 tab PO DAILY [facility] Potassium Chloride (K-Dur 20 Meq Er Tab) 40 meq PO BID RICHARD Stop: 11/10/18 18:01 Last Admin: 11/10/18 09:48 Dose: 40 meq Thiamine HCl (Vitamin B1 Tab) 100 mg PO DAILY [facility] Results - Vital Signs Recent Vital Signs: Last Vital Signs Temp 98.1 F 11/10/18 06:00 Pulse 90 11/10/18 10:00 Resp 18 11/10/18 06:00 BP 143/92 H 11/10/18 08:44 Pulse Ox 97 11/10/18 06:00 - Labs Result Diagrams: 11/10/18 06:20 11/10/18 06:20 Labs: Laboratory Results - last 24 hr 11/09/18 11/09/18 11/09/18 19:28 19:28 19:28 WBC 14.7 H RBC 4.88 Hgb 15.3 Hct 43.4 MCV 88.9 D MCH 31.4 MCHC 35.3 RDW 14.0 Plt Count 238 MPV 10.3 Neut % (Auto) 77.6 H Lymph % (Auto) 13.3 L [place] % (Auto) 8.9 H Eos % (Auto) 0.1 L Baso % (Auto) 0.1 Lymph # (Auto) 2.0 [place] # (Auto) 1.3 H Eos # (Auto) 0.0 Baso # (Auto) 0.02 Absolute Neuts (auto) 11.37 H PT INR APTT Sodium 138 Potassium 3.5 L Chloride 103 Carbon Dioxide 23 Anion Gap 16 BUN 11 Creatinine 0.7 L Est GFR ( Amer) > 60 Est GFR (Non-Af Amer) > 60 Random Glucose 122 H Calcium 9.0 Phosphorus Magnesium Total Bilirubin 1.8 H AST 41 ALT 25 Alkaline Phosphatase 92 Total Protein 8.0 Albumin 4.2 Globulin 3.7 Albumin/Globulin Ratio 1.1 Urine Color Urine Appearance Urine pH Ur Specific [place] Urine Protein Urine Glucose (UA) Urine Ketones Urine Blood Urine Nitrate Urine Bilirubin Urine Urobilinogen Ur Leukocyte Esterase Urine RBC Urine WBC Ur Epithelial Cells Salicylates Urine Opiates Screen Urine Methadone Screen Acetaminophen Ur Barbiturates Screen Ur Phencyclidine Scrn Ur Amphetamines Screen U Benzodiazepines Scrn U Oth Cocaine Metabols U Cannabinoids Screen Alcohol, Quantitative < 10 11/09/18 11/09/18 11/09/18 19:28 19:28 21:10 WBC RBC Hgb Hct MCV MCH MCHC RDW Plt Count MPV Neut % (Auto) Lymph % (Auto) [place] % (Auto) Eos % (Auto) Baso % (Auto) Lymph # (Auto) [place] # (Auto) Eos # (Auto) Baso # (Auto) Absolute Neuts (auto) PT 12.6 H INR 1.14 APTT 32.2 Sodium Potassium Chloride Carbon Dioxide Anion Gap BUN Creatinine Est GFR ( Amer) Est GFR (Non-Af Amer) Random Glucose Calcium Phosphorus 3.0 Magnesium 1.5 L Total Bilirubin AST ALT Alkaline Phosphatase Total Protein Albumin Globulin Albumin/Globulin Ratio Urine Color Yellow Urine Appearance Clear Urine pH 6.5 Ur Specific [place] 1.010 Urine Protein Negative Urine Glucose (UA) Negative Urine Ketones Negative Urine Blood Trace-intact H Urine Nitrate Negative Urine Bilirubin Negative Urine Urobilinogen 0.2 Ur Leukocyte Esterase Negative Urine RBC 5 - 10 H Urine WBC 2 - 5 Ur Epithelial Cells 4 - 5 Salicylates Urine Opiates Screen Urine Methadone Screen Acetaminophen Ur Barbiturates Screen Ur Phencyclidine Scrn Ur Amphetamines Screen U Benzodiazepines Scrn U Oth Cocaine Metabols U Cannabinoids Screen Alcohol, Quantitative 11/09/18 11/09/18 11/10/18 22:53 23:00 06:20 WBC 8.4 D RBC 4.27 Hgb 13.1 L D Hct 38.3 L MCV 89.7 MCH 30.7 MCHC 34.2 RDW 14.1 Plt Count 189 MPV 10.4 Neut % (Auto) 59.9 Lymph % (Auto) 28.5 [place] % (Auto) 10.8 H Eos % (Auto) 0.7 L Baso % (Auto) 0.1 Lymph # (Auto) 2.4 [place] # (Auto) 0.9 H Eos # (Auto) 0.1 Baso # (Auto) 0.01 Absolute Neuts (auto) 5.02 PT INR APTT Sodium Potassium Chloride Carbon Dioxide Anion Gap BUN Creatinine Est GFR ( Amer) Est GFR (Non-Af Amer) Random Glucose Calcium Phosphorus Magnesium Total Bilirubin AST ALT Alkaline Phosphatase Total Protein Albumin Globulin Albumin/Globulin Ratio Urine Color Urine Appearance Urine pH Ur Specific [place] Urine Protein Urine Glucose (UA) Urine Ketones Urine Blood Urine Nitrate Urine Bilirubin Urine Urobilinogen Ur Leukocyte Esterase Urine RBC Urine WBC Ur Epithelial Cells Salicylates < 1 L Urine Opiates Screen Negative Urine Methadone Screen Negative Acetaminophen < 10.0 L Ur Barbiturates Screen Negative Ur Phencyclidine Scrn Negative Ur Amphetamines Screen Negative U Benzodiazepines Scrn Negative U Oth Cocaine Metabols Negative U Cannabinoids Screen Negative Alcohol, Quantitative 11/10/18 06:20 WBC RBC Hgb Hct MCV MCH MCHC RDW Plt Count MPV Neut % (Auto) Lymph % (Auto) [place] % (Auto) Eos % (Auto) Baso % (Auto) Lymph # (Auto) [place] # (Auto) Eos # (Auto) Baso # (Auto) Absolute Neuts (auto) PT INR APTT Sodium 136 Potassium 3.3 L Chloride 104 Carbon Dioxide 24 Anion Gap 11 BUN 8 Creatinine 0.7 L Est GFR ( Amer) > 60 Est GFR (Non-Af Amer) > 60 Random Glucose 109 Calcium 8.5 Phosphorus 2.7 Magnesium 1.6 L Total Bilirubin 2.0 H AST 32 ALT 19 Alkaline Phosphatase 69 Total Protein 6.5 Albumin 3.4 Globulin 3.1 Albumin/Globulin Ratio 1.1 Urine Color Urine Appearance Urine pH Ur Specific [place] Urine Protein Urine Glucose (UA) Urine Ketones Urine Blood Urine Nitrate Urine Bilirubin Urine Urobilinogen Ur Leukocyte Esterase Urine RBC Urine WBC Ur Epithelial Cells Salicylates Urine Opiates Screen Urine Methadone Screen Acetaminophen Ur Barbiturates Screen Ur Phencyclidine Scrn Ur Amphetamines Screen U Benzodiazepines Scrn U Oth Cocaine Metabols U Cannabinoids Screen Alcohol, Quantitative
[2018-11-10 12:50] VITALS: BP 117/68; RESP 19; TEMP 97.8
[2018-11-10 14:48] LABS: BLOOD UREA NITROGEN 9 mg/dL (7-21); CALCIUM 8.9 mg/dL (8.4-10.5); GFR NON-AFRICAN AMERICAN > 60
--- NOTE | 2018-11-10 16:11 | CP.PCM.DIS ---
<Tavares August - Last Filed: 11/10/18 15:54> Provider - Provider Date of Admission: 11/09/18 23:47 Attending physician: Noe Palacios MD Consults: 11/10/18 01:58 Neurology Consult Routine Comment: Consulting Provider: Vaishali Lloyd Consulting Physician: Vaishali Lloyd Reason for Consult: chronic subdural hematomas 11/10/18 02:29 Physician Consult Routine Comment: Consulting Provider: Hiram Chao Consulting Physician: Hiram Chao Reason for Consult: subdural hematoma, chronic; head injury 11/10/18 10:23 Nursing Referral for Wound Care Routine Comment: Physician Instructions: Reason For Exam: large head wound with drainage Time Spent in preparation of Discharge (in minutes): 60 Hospital Course - Lab Results Lab Results: Most Recent Lab Values WBC 8.4 10^3/uL (4.5-11.0) D 11/10/18 06:20 RBC 4.27 10^6/uL (3.5-6.1) 11/10/18 06:20 Hgb 13.1 g/dL (14.0-18.0) L D 11/10/18 06:20 Hct 38.3 % (42.0-52.0) L 11/10/18 06:20 MCV 89.7 fl (80.0-105.0) 11/10/18 06:20 MCH 30.7 pg (25.0-35.0) 11/10/18 06:20 MCHC 34.2 g/dl (31.0-37.0) 11/10/18 06:20 RDW 14.1 % (11.5-14.5) 11/10/18 06:20 Plt Count 189 10^3/uL (120.0-450.0) 11/10/18 06:20 MPV 10.4 fl (7.0-11.0) 11/10/18 06:20 Neut % (Auto) 59.9 % (50.0-68.0) 11/10/18 06:20 Lymph % (Auto) 28.5 % (22.0-35.0) 11/10/18 06:20 [place] % (Auto) 10.8 % (1.0-6.0) H 11/10/18 06:20 Eos % (Auto) 0.7 % (1.5-5.0) L 11/10/18 06:20 Baso % (Auto) 0.1 % (0.0-3.0) 11/10/18 06:20 Lymph # (Auto) 2.4 (1.2-3.4) 11/10/18 06:20 [place] # (Auto) 0.9 (0.1-0.6) H 11/10/18 06:20 Eos # (Auto) 0.1 (0.0-0.7) 11/10/18 06:20 Baso # (Auto) 0.01 K/mm3 (0.0-2.0) 11/10/18 06:20 Absolute Neuts (auto) 5.02 (1.4-6.5) 11/10/18 06:20 PT 12.6 SECONDS (9.4-12.5) H 11/09/18 19:28 INR 1.14 11/09/18 19:28 APTT 32.2 Seconds (26.9-38.3) 11/09/18 19:28 Sodium 136 mmol/L (132-148) 11/10/18 14:30 Potassium 3.4 mmol/L (3.6-5.0) L 11/10/18 14:30 Chloride 103 mmol/L (98-107) 11/10/18 14:30 Carbon Dioxide 25 mmol/L (21-33) 11/10/18 14:30 Anion Gap 12 (10-20) 11/10/18 14:30 BUN 9 mg/dL (7-21) 11/10/18 14:30 Creatinine 0.8 mg/dl (0.8-1.5) 11/10/18 14:30 Est GFR ( Amer) > 60 11/10/18 14:30 Est GFR (Non-Af Amer) > 60 11/10/18 14:30 Random Glucose 115 mg/dL (70-110) H 11/10/18 14:30 Calcium 8.9 mg/dL (8.4-10.5) 11/10/18 14:30 Phosphorus 2.7 mg/dL (2.5-4.5) 11/10/18 06:20 Magnesium 1.6 mg/dL (1.7-2.2) L 11/10/18 06:20 Total Bilirubin 2.0 mg/dL (0.2-1.3) H 11/10/18 06:20 AST 32 U/L (17-59) 11/10/18 06:20 ALT 19 U/L (7-56) 11/10/18 06:20 Alkaline Phosphatase 69 U/L (38-126) 11/10/18 06:20 Total Protein 6.5 g/dL (5.8-8.3) 11/10/18 06:20 Albumin 3.4 g/dL (3.0-4.8) 11/10/18 06:20 Globulin 3.1 gm/dL 11/10/18 06:20 Albumin/Globulin Ratio 1.1 (1.1-1.8) 11/10/18 06:20 Urine Color Yellow (YELLOW) 11/09/18 21:10 Urine Appearance Clear (CLEAR) 11/09/18 21:10 Urine pH 6.5 (4.7-8.0) 11/09/18 21:10 Ur Specific [place] 1.010 (1.005-1.035) 11/09/18 21:10 Urine Protein Negative mg/dL (<30 mg/dL) 11/09/18 21:10 Urine Glucose (UA) Negative mg/dL (NEGATIVE) 11/09/18 21:10 Urine Ketones Negative mg/dL (NEGATIVE) 11/09/18 21:10 Urine Blood Trace-intact (NEGATIVE) H 11/09/18 21:10 Urine Nitrate Negative (NEGATIVE) 11/09/18 21:10 Urine Bilirubin Negative (NEGATIVE) 11/09/18 21:10 Urine Urobilinogen 0.2 E.U./dL (<1 E.U./dL) 11/09/18 21:10 Ur Leukocyte Esterase Negative Brian/uL (NEGATIVE) 11/09/18 21:10 Urine RBC 5 - 10 /hpf (0-2) H 11/09/18 21:10 Urine WBC 2 - 5 /hpf (0-6) 11/09/18 21:10 Ur Epithelial Cells 4 - 5 /hpf (0-5) 11/09/18 21:10 Salicylates < 1 mg/dL (2.0-20.0) L 11/09/18 22:53 Urine Opiates Screen Negative (NEGATIVE) 11/09/18 23:00 Urine Methadone Screen Negative (NEGATIVE) 11/09/18 23:00 Acetaminophen < 10.0 ug/ml (10.0-20.0) L 11/09/18 22:53 Ur Barbiturates Screen Negative (NEGATIVE) 11/09/18 23:00 Ur Phencyclidine Scrn Negative (NEGATIVE) 11/09/18 23:00 Ur Amphetamines Screen Negative (NEGATIVE) 11/09/18 23:00 U Benzodiazepines Scrn Negative (NEGATIVE) 11/09/18 23:00 U Oth Cocaine Metabols Negative (NEGATIVE) 11/09/18 23:00 U Cannabinoids Screen Negative (NEGATIVE) 11/09/18 23:00 Alcohol, Quantitative < 10 mg/dL (0-10) 11/09/18 19:28 - Hospital Course Hospital Course: Tavares August, PGY-1, Internal Medicine Discharge Summary for Dr. Palacios 53 year old male with past medical history of hypertension, alcohol abuse, anxiety, and depression presented after he noticed redness and swelling around his left eye. Patient reported that 3 days prior to presentation, he was drinking more whiskey than usual when he was very drunk and fell. The next morning, he found an abrasion on his head with bleeding that had stopped. However, he does not remember falling or losing consciousness as he was drunk. The next night, he had 6 drinks and fell asleep. The next morning, he was concerned that he noticed ecchymosis around his left eye. He did not have any weakness, numbness, tingling, confusion, or photophobia since the event. He did not remember falling. As a result, he went to the emergency department. Upon admission, cervical spine CT showed no acute findings. Chest/Abdomen/Pelvis CT showed no acute findings. Maxillofacial CT showed no acute findings. Head CT showed chronic bilateral subdural fluid collections seen more on the left than right. There was no significant change. The left sided collection measured 16 mm in thickness and the right side was 12 mm. Neurosurgery advised no surgery at this time. Neurology indicated no surgery at this time and no further recommendations as patient was not having seizures. She recommend alcohol rehabilitation. Patient initially had a leukocytosis likely stress induced that resolved today. Hypokalemia was repleted appropriately. Hypomagnesia was repleted appropriately. For patient's head wound, wound care was consulted who recommended using hydrogel with silver and instructed patient how to use the gel. As a result, patient was found to be stable and ready for discharge. In addition, patient was started on CIWA protocol and with PRN ativan and librium. Patient only required one dose of ativan on this admission. Patient was given banana bag and started on MVI, thiamine, and folate. Patient's CIWA ranged from 1-2 Patient was found to be stable and ready for discharge. Patient was told to follow up with PCP within 3-5 days. Patient was told to take all medications as prescribed. Patient was told to abstain from alcohol and follow up a program to help him with alcohol abuse. He was told to return to the emergency room if he had any new or concerning symptoms. This is a brief summary of the events that occurred during this hospital visit. For more information, refer to hospital documentation. Discharge diagnoses Alcohol abuse Chronic Subdural Hematoma Hypertension - Date & Time of H&P Date of H&P: 11/10/18 Time of H&P: 00:12 Discharge Exam - Head Exam Additional comments: trauma with dried blood and discharge on the top of his head - Eye Exam Eye Exam: EOMI, PERRL Additional comments: edema of the left periorbital skin - Respiratory Exam Respiratory Exam: Clear to PA & Lateral, NORMAL BREATHING PATTERN. absent: Rales, Rhonchi, Wheezes - Cardiovascular Exam Cardiovascular Exam: REGULAR RHYTHM, RRR, +S1, +S2. absent: Clicks, Gallop, Rubs - GI/Abdominal Exam GI & Abdominal Exam: Normal Bowel Sounds, Soft. absent: Distended, Firm, Guarding, Tenderness - Extremities Exam Extremities exam: full ROM, normal capillary refill, normal inspection - Neurological Exam Neurological exam: Alert, CN II-XII Intact, Normal Gait, Oriented x3 - Skin Skin Exam: Dry, Intact, Normal Color Discharge Plan - Discharge Medications Prescriptions: Folic Acid 1 mg PO DAILY #30 tab Multivitamin Therapeutic Tab [Thera Tab] 1 tab PO DAILY #30 tab Thiamine [Vitamin B1 Tab] 100 mg PO DAILY #30 tab - Follow Up Plan Condition: FAIR Disposition: HOME/ ROUTINE Additional Instructions: Please follow up with your primary care doctor within 3-5 days. Please take all medications as prescribed. Please apply hydrogel with silver as instructed to site of head wound by Wound Care Nurse. Please abstain from alcohol use. Please return to the emergency department if you have any new or concerning symptoms. Referrals: Carline Machado, DO [Family Provider] - <Noe Palacios - Last Filed: 11/10/18 17:07> Provider - Provider Date of Admission: 11/09/18 23:47 Attending physician: Noe Palacios MD Consults: 11/10/18 01:58 Neurology Consult Routine Comment: Consulting Provider: Vaishali Lloyd Consulting Physician: Vaishali Lloyd Reason for Consult: chronic subdural hematomas 11/10/18 02:29 Physician Consult Routine Comment: Consulting Provider: Hiram Chao Consulting Physician: Hiram Chao Reason for Consult: subdural hematoma, chronic; head injury 11/10/18 10:23 Nursing Referral for Wound Care Routine Comment: Physician Instructions: Reason For Exam: large head wound with drainage Hospital Course - Lab Results Lab Results: Most Recent Lab Values WBC 8.4 10^3/uL (4.5-11.0) D 11/10/18 06:20 RBC 4.27 10^6/uL (3.5-6.1) 11/10/18 06:20 Hgb 13.1 g/dL (14.0-18.0) L D 11/10/18 06:20 Hct 38.3 % (42.0-52.0) L 11/10/18 06:20 MCV 89.7 fl (80.0-105.0) 11/10/18 06:20 MCH 30.7 pg (25.0-35.0) 11/10/18 06:20 MCHC 34.2 g/dl (31.0-37.0) 11/10/18 06:20 RDW 14.1 % (11.5-14.5) 11/10/18 06:20 Plt Count 189 10^3/uL (120.0-450.0) 11/10/18 06:20 MPV 10.4 fl (7.0-11.0) 11/10/18 06:20 Neut % (Auto) 59.9 % (50.0-68.0) 11/10/18 06:20 Lymph % (Auto) 28.5 % (22.0-35.0) 11/10/18 06:20 [place] % (Auto) 10.8 % (1.0-6.0) H 11/10/18 06:20 Eos % (Auto) 0.7 % (1.5-5.0) L 11/10/18 06:20 Baso % (Auto) 0.1 % (0.0-3.0) 11/10/18 06:20 Lymph # (Auto) 2.4 (1.2-3.4) 11/10/18 06:20 [place] # (Auto) 0.9 (0.1-0.6) H 11/10/18 06:20 Eos # (Auto) 0.1 (0.0-0.7) 11/10/18 06:20 Baso # (Auto) 0.01 K/mm3 (0.0-2.0) 11/10/18 06:20 Absolute Neuts (auto) 5.02 (1.4-6.5) 11/10/18 06:20 PT 12.6 SECONDS (9.4-12.5) H 11/09/18 19:28 INR 1.14 11/09/18 19:28 APTT 32.2 Seconds (26.9-38.3) 11/09/18 19:28 Sodium 136 mmol/L (132-148) 11/10/18 14:30 Potassium 3.4 mmol/L (3.6-5.0) L 11/10/18 14:30 Chloride 103 mmol/L (98-107) 11/10/18 14:30 Carbon Dioxide 25 mmol/L (21-33) 11/10/18 14:30 Anion Gap 12 (10-20) 11/10/18 14:30 BUN 9 mg/dL (7-21) 11/10/18 14:30 Creatinine 0.8 mg/dl (0.8-1.5) 11/10/18 14:30 Est GFR ( Amer) > 60 11/10/18 14:30 Est GFR (Non-Af Amer) > 60 11/10/18 14:30 Random Glucose 115 mg/dL (70-110) H 11/10/18 14:30 Calcium 8.9 mg/dL (8.4-10.5) 11/10/18 14:30 Phosphorus 2.7 mg/dL (2.5-4.5) 11/10/18 06:20 Magnesium 1.6 mg/dL (1.7-2.2) L 11/10/18 06:20 Total Bilirubin 2.0 mg/dL (0.2-1.3) H 11/10/18 06:20 AST 32 U/L (17-59) 11/10/18 06:20 ALT 19 U/L (7-56) 11/10/18 06:20 Alkaline Phosphatase 69 U/L (38-126) 11/10/18 06:20 Total Protein 6.5 g/dL (5.8-8.3) 11/10/18 06:20 Albumin 3.4 g/dL (3.0-4.8) 11/10/18 06:20 Globulin 3.1 gm/dL 11/10/18 06:20 Albumin/Globulin Ratio 1.1 (1.1-1.8) 11/10/18 06:20 Urine Color Yellow (YELLOW) 11/09/18 21:10 Urine Appearance Clear (CLEAR) 11/09/18 21:10 Urine pH 6.5 (4.7-8.0) 11/09/18 21:10 Ur Specific [place] 1.010 (1.005-1.035) 11/09/18 21:10 Urine Protein Negative mg/dL (<30 mg/dL) 11/09/18 21:10 Urine Glucose (UA) Negative mg/dL (NEGATIVE) 11/09/18 21:10 Urine Ketones Negative mg/dL (NEGATIVE) 11/09/18 21:10 Urine Blood Trace-intact (NEGATIVE) H 11/09/18 21:10 Urine Nitrate Negative (NEGATIVE) 11/09/18 21:10 Urine Bilirubin Negative (NEGATIVE) 11/09/18 21:10 Urine Urobilinogen 0.2 E.U./dL (<1 E.U./dL) 11/09/18 21:10 Ur Leukocyte Esterase Negative Brian/uL (NEGATIVE) 11/09/18 21:10 Urine RBC 5 - 10 /hpf (0-2) H 11/09/18 21:10 Urine WBC 2 - 5 /hpf (0-6) 11/09/18 21:10 Ur Epithelial Cells 4 - 5 /hpf (0-5) 11/09/18 21:10 Salicylates < 1 mg/dL (2.0-20.0) L 11/09/18 22:53 Urine Opiates Screen Negative (NEGATIVE) 11/09/18 23:00 Urine Methadone Screen Negative (NEGATIVE) 11/09/18 23:00 Acetaminophen < 10.0 ug/ml (10.0-20.0) L 11/09/18 22:53 Ur Barbiturates Screen Negative (NEGATIVE) 11/09/18 23:00 Ur Phencyclidine Scrn Negative (NEGATIVE) 11/09/18 23:00 Ur Amphetamines Screen Negative (NEGATIVE) 11/09/18 23:00 U Benzodiazepines Scrn Negative (NEGATIVE) 11/09/18 23:00 U Oth Cocaine Metabols Negative (NEGATIVE) 11/09/18 23:00 U Cannabinoids Screen Negative (NEGATIVE) 11/09/18 23:00 Alcohol, Quantitative < 10 mg/dL (0-10) 11/09/18 19:28 Attending/Attestation - Attestation I have personally seen and examined this patient.: Yes I have fully participated in the care of the patient.: Yes I have reviewed all pertinent clinical information, including history, physical exam and plan: Yes Notes (Text): 11/10/18 16:59 53 year old with past medical history of hypertension and alcohol abuse who presented after fall 3 days prior. He admits to drinking daily and is unsure if he was intoxicated at the time of fall. He had extensive imaging including CT cervical spine, CT chest/abdomen/pelvis, and CT maxillofacial which did not show any acute findings. He had CT head which showed chronic bilateral subdural flu id collections, no significant change. CT findings were discussed with patient with emphasis on alcohol cessation and risks of falls and bleeding. He was seen by neurology without any further recommendations. Neurosurgery also did not recommendation any surgery at this time. Wound care evaluation was appreciated as well for wound abrasion on scalp. He had leukocytosis, likely reactive, which resolved. Patient was seen by PT today as well. Patient is discharged home to follow up with pmd. Counselled on alcohol cessation. Counselled on fall risks and precautions. Wound care instructions as above. Prognosis is guarded due to ETOH abuse. Noe Palacios MD Hospitalist.
[2018-11-10] MEDS ORDERED: Pneumococcal 23-Valent Vaccine IM ONE (17:28)
[2018-11-10 18:16] VITALS: PULSE 93
--- NOTE | 2018-11-10 19:24 | CON ---
DATE: 11/10/2018 NEUROLOGY CONSULTATION Neurology consult placed by Dr. Noe Palacios. HISTORY OF PRESENT ILLNESS: Mr. Estes is a 53-year-old male, right-handed who has history of alcoholism and frequent falls. The patient was admitted to the hospital after he had drinking all day for several days and was found to have a head injury. He was complaining of headache at the time of his admission and in addition he had lower back pain and abdominal pain. On examination this morning, the patient denies headache. He denies nausea, vomiting, or diarrhea. However, he does have bilateral orbital swelling and facial swelling. CT of the head was done and shows bilateral subdural hygromas, left more than right measuring approximately between 10 to [address] does not show any fractures. Neurosurgical consult appreciated. Dr. Palacios feels at this point that there is no room for surgical intervention. REVIEW OF SYSTEMS: For the patient today is I find ocular pain and discomfort. PHYSICAL EXAMINATION: NEUROLOGICAL: On exam; the patient is alert and oriented x3. Pupils are equal, round, and reactive to light. Extraocular muscles are normal. External ocular movements are intact. Visual feldman are full. Mini mental status is 30/30. Please note the exam was conducted in [place]. Motor tone, strength 5/5 normal bilaterally. Sensory in intact to fine touch and pin position sense. Gait is normal. Reflexes are +2 in upper and lower limbs bilaterally. VITAL SIGNS: Show temperature 98.4, blood pressure 145/101, pulse 116, pulse ox 97%. LABORATORY DATA: Show white count of 8.4, hemoglobin 13, hematocrit 38.3. Coags are normal. Chemistries; significant only for low potassium 3.3, magnesium 1.6. AST and ALT are normal. Urine is normal. Toxicology shows no sign of alcohol or other illicit drug use. IMPRESSION: This is a 53-year-old male with alcoholism and frequent falls and now subdural hygromas. The subdural hygromas appear to be chronic. There is no intracranial hemorrhage. Neurosurgery does not feel any surgery is indicated at this time. He has not had any seizures, noted to have a history of seizures and epilepsy. PLAN: 1. Recommend alcohol rehab. 2. No further recommendations at this time. Thank you for this interesting consult. Vaishali Lloyd MD
[2018-11-11] MEDS ORDERED: Multivitamin Therapeutic Tab PO SCH (10:00)
== END 2018-11-10 18:34 | disposition home or self-care (01) ==
LOC: ED 18:18 → ERH 23:47 → 2RNO 11-10 01:26
PROVIDERS: ADMIT Internal Medicine; ATTEND Internal Medicine
DX: S06.5X9A Traumatic subdural hemorrhage with loss of consciousness of unspecified duration, initial encounter (principal); S00.01XA Abrasion of scalp, initial encounter; S00.12XA Contusion of left eyelid and periocular area, initial encounter; E87.6 Hypokalemia; E83.42 Hypomagnesemia; I10 Essential (primary) hypertension; M50.322 Other cervical disc degeneration at C5-C6 level; M50.323 Other cervical disc degeneration at C6-C7 level; R29.6 Repeated falls; F10.20 Alcohol dependence, uncomplicated; W19.XXXA Unspecified fall, initial encounter; G96.0 Cerebrospinal fluid leak; Z23 Encounter for immunization
CPT/HCPCS: 36415; 70450; 70486; 71260; 72125; 74177; 80053; 80320; 80324; 80329; 80345; 80346; 80349; 80353; 80358; 80361; 81001; 83735; 83992; 84100; 85025; 85610; 85730; 90471; 90715; 90732; 93005; 96361; 96365; 96375; 96376; 97116; 97161; 99284; G0378; G8978; G8979; G8980; J2060; J3411; J7030; J7070; Q9967